=== PATIENT | male | born 1975 | race Caucasian/White ===

== ENCOUNTER 2019-11-09 19:09 | Emergency (ER) | payer BC, SELFPAY ==
[2019-11-09 19:11] VITALS: BP 142/88; PULSE 111; RESP 19; TEMP 37; O2SAT 100
--- NOTE | 2019-11-09 20:18 | ED.SKABFB ---
HPI - Skin/Abscess/Foreign Bdy General Chief complaint: Wound/Laceration Stated complaint: boil on leg Time Seen by Provider: 11/09/19 20:17 History of Present Illness HPI narrative: Pain and swelling to the right inner thigh. Getting worse for the past 3 days. No fever or othersystemic symptom. Related Data Allergies Allergy/AdvReac Type Severity Reaction Status Date / Time acetaminophen [From Vicodin] Allergy Agitated Verified 11/09/19 20:34 hydrocodone [From Vicodin] Allergy Agitated Verified 11/09/19 20:34 Review of Systems Review of Systems: All systems reviewed & are unremarkable except as noted in HPI and below PMFSH Social History Social History Gender identity (if verbalized by the patient): Male Exam Const: General: healthy appearing, no acute distress and alert Orientation/consciousness: patient oriented x3 HENMT: Head: normal to inspection Resp: Effort & Inspection: normal respiratory effort Auscultation: clear to auscultation bilaterally Cardio: Rate: regular rate Rhythm: regular rhythm Skin: Other: erythema and induration over right inner thigh with small area of central fluctuance. Neuro: General: patient oriented x3 and moves all extremities Speech: normal speech Extrem: General: normal to inspection Course Vital Signs Vital signs: Vital Signs Temperature 37.0 C 11/09/19 19:11 Pulse Rate 111 H 11/09/19 19:11 Respiratory Rate 19 11/09/19 19:11 Blood Pressure 142/88 H 11/09/19 19:11 Pulse Oximetry 100 11/09/19 19:11 Temperature 37.0 C 11/09/19 19:11 Pulse Rate 106 H 11/09/19 21:15 Respiratory Rate 17 11/09/19 21:15 Blood Pressure 159/93 H 11/09/19 21:15 Pulse Oximetry 97 11/09/19 21:15 Procedures Abscess I/D lower extremity: Side (if applicable): right Local Anesthetic: lidocaine 1% Amount of anesthesia used (mL): 6 Technique: incised with #11 blade Amount of fluid expressed (mL): 2 Irrigation: Yes Packing used?: none I&D Results: Pus Complications: pain Discharge Plan Discharge Clinical Impression: Abscess Patient Disposition: Home, Self-Care Condition: Stable Instructions: Antibiotic Form, Abscess (ED) Prescriptions: New sulfamethoxazole-trimethoprim [Bactrim DS] 800-160 mg tablet 1 tablet PO Q12H Qty: 20 RF: 0 Follow-up/Referrals: Douglas Asif MD [Physician] - PHYSICIAN,CLINICAL OUTCOMES MANAGER [Primary Care Provider] - Discharge Date/Time: 11/09/19 21:16
[2019-11-09 21:15] VITALS: BP 159/93; PULSE 106; RESP 17; O2SAT 97
== END 2019-11-09 21:16 | disposition home or self-care (01) ==
PROVIDERS: Emergency Provider Emergency Medicine
DX: L02.415 Cutaneous abscess of right lower limb (principal)
CPT/HCPCS: 10060; 99283; A9270

== ENCOUNTER 2019-11-11 15:54 | Inpatient (IN) | payer BC, SELFPAY ==
--- NOTE | ~2019-11-11 | US_ITS ---
EXAMINATION: US soft tissue pelvic DATE: 11/13/2019 13:58 INDICATION: Swelling at the right side of the scrotum TECHNIQUE: Multiple grayscale and Doppler ultrasound images of the junction of concern at the right g roin and medial thigh were obtained. COMPARISON: None FINDINGS: There is subcutaneous edema surrounding a 1.9 x 1.1 x 1.5 cm complex anechoic fluid collection which likely represents a small abscess which is located 1.4 cm deep to the skin surface. There is an irreg ular hypoechoic tract which extends from the abscess towards the skin surface. IMPRESSION: 1. 1.9 x 1.1 x 1.5 cm likely draining abscess within a region of cellulitis at the medial right thigh /groin. Reviewed, dictated and finalized at location A. IMPRESSION: 1. 1.9 x 1.1 x 1.5 cm likely draining abscess within a region of cellulitis at the medial right thigh/groin.
--- NOTE | ~2019-11-11 | CT_ITS ---
EXAMINATION: CT pelvis w con EXAM DATE: 11/11/2019 17:35 INDICATION: Gluteal/right leg abscess/cellulitis. TECHNIQUE: Spiral CT pelvis w con was performed following intravenous injection of 100 mL Omnipaque 3 50. Axial, coronal and sagittal images were reviewed. The thighs were also scanned. The dose-length product (DLP) for this examination was 1379.41 mGy-cm. The exposure was tailored according to patien t size (auto mA exposure control), and iterative reconstruction (ASIR) was used as additional dose re duction technique. There is no prior study for comparison. FINDINGS: Image bottom portion of the kidneys unremarkable. The appendix is normal. There is expecte d amount of colonic stool and no evidence of bowel obstruction. No pelvic lymphadenopathy. There is induration along the right inner gluteal fold, inner aspect of the thigh as evidenced by ski n thickening and regional edema. There is no abscess or subcutaneous gas. Appearances consistent with cellulitis There are no osseous abnormalities identified. IMPRESSION: Right gluteal, medial thigh cellulitis. Reviewed, dictated and finalized at location A.
--- NOTE | 2019-11-11 16:01 | ED.SKABFB ---
HPI - Skin/Abscess/Foreign Bdy General Chief complaint: Wound/Laceration Stated complaint: Boil Time Seen by Provider: 11/11/19 15:57 History of Present Illness HPI narrative: Patient is a 44-year-old male with history of abscess that was opened a couple days ago who presents with worsening of abscess/infection. Reports originally pain was at the fold of his thigh and buttock on the left side. The redness is extending to his mid thigh. No continued drainage. Compliant with antibiotics. No fevers or chills or sweats. Has a lot of pain with movement of his leg. Related Data Home Medications Medication Instructions Recorded Confirmed omeprazole 40 mg PO DAILY 11/11/19 Allergies Allergy/AdvReac Type Severity Reaction Status Date / Time acetaminophen [From Vicodin] Allergy Agitated Verified 11/11/19 16:50 hydrocodone [From Vicodin] Allergy Agitated Verified 11/11/19 16:50 Review of Systems Review of Systems: All systems reviewed & are unremarkable except as noted in HPI and below Constitutional: Constitutional: Denies chills, Denies fever(s) and Denies weakness Gastrointestinal: Gastrointestinal: Denies nausea and Denies vomiting Musculoskeletal: Comments: Left lower extremity pain and inguinal crease pain. Integumentary/Breasts: Skin/Breast: Reports erythema and Reports rash PMFSH Past Medical History Medical History (Updated 11/11/19 @ 18:53 by Clay Zurita MD) Brugada syndrome Mild acid reflux Surgical History Surgical History (Updated 11/11/19 @ 17:17 by Clay Zurita MD) History of cholecystectomy History of hernia repair Social History Social History (Updated 11/11/19 @ 17:17 by Clay Zurita MD) Smoking status: Never smoker Gender identity (if verbalized by the patient): Male Exam Narrative: Exam Narrative: GENERAL: Well-appearing, well-nourished, and in no acute distress. HEAD: Normocephalic, atraumatic. ENT: Mucous membranes moist. CHEST: Clear to auscultation. No respiratory distress. HEART: Tachycardic and regular. Normal peripheral pulses. EXTREMITIES: Normal range of motion. No edema. SKIN: Warm, dry, no rash. Cellulitis from just beneath the left buttock region medial posterior thigh where there is a area of induration where there was incision and drainage, cellulitis not extends down to the mid thigh. Does not track towards the perineum or testicles. NEURO: Alert and oriented x3. PSYCH: Normal mood and affect. Course Course Emergency Course: Admit to hospitalist service. General surgeon consulted. Vital Signs Vital signs: Vital Signs Temperature 98.2 F 11/11/19 16:03 Pulse Rate 116 H 11/11/19 16:03 Respiratory Rate 18 11/11/19 16:03 Blood Pressure 141/81 H 11/11/19 16:03 Pulse Oximetry 98 11/11/19 16:03 Temperature 98.2 F 11/11/19 16:03 Pulse Rate 93 11/11/19 18:17 Respiratory Rate 20 11/11/19 18:17 Blood Pressure 152/77 H 11/11/19 18:17 Pulse Oximetry 96 11/11/19 18:17 MDM - Skin/Abscess/Foreign Bdy Lab Data Result diagrams: 11/11/19 16:14 11/11/19 16:14 Labs: Lab Results 11/11/19 11/11/19 11/11/19 Range/Units 16:13 16:14 16:14 WBC 10.6 H (4.5-10.0) K/mm3 RBC 4.75 (4.6-6.20) M/mm3 Hgb 14.5 (14.0-18.0) g/dL Hct 40.8 L (42.0-52.0) % MCV 85.9 (80-100) fl MCH 30.5 (26-34) pg MCHC 35.5 (32-36) g/dl RDW 12.7 (11.5-14.5) % Plt Count 233 (150-375) k/mm3 MPV 10.7 H (7.4-10.4) fl Immature Gran % (Auto) 0.5 (0-0.5) % Neut % (Auto) 76.0 H (45.5-73.1) % Lymph % (Auto) 15.0 L (18.3-44.2) % [place] % (Auto) 7.3 (2.6-8.5) % Eos % (Auto) 0.8 (0-4.4) % Baso % (Auto) 0.4 (0.2-1.2) % Lymph # (Auto) 1.58 (0.9-3.2) K/mm3 [place] # (Auto) 0.8 H (0.1-0.6) K/mm3 Eos # (Auto) 0.1 (0-0.3) K/mm3 Baso # (Auto) 0.0 (0.0-0.1) K/mm3 Abs Immat Gran (auto) 0.05 H (0.00-0.031) K/mm3 Absolute Neuts (a
[2019-11-11 16:03] VITALS: BP 141/81; PULSE 116; RESP 18; TEMP 36.8; O2SAT 98
[2019-11-11] MEDS: MORPHINE SULFATE 4 MG/ML INJ IV PUSH (16:28)
[2019-11-11] MEDS: SODIUM CHLORIDE 0.9% IV 1,000 ML 999 ML IV CONT ×2 (16:28→16:59)
[2019-11-11 16:31] LABS: Basophils Percent Auto 0.4 % (0.2-1.2); Eosinophils Absolute Auto 0.1 K/mm3 (0-0.3); Eosinophils Percent Auto 0.8 % (0-4.4); Hematocrit 40.8 % (42.0-52.0); Hemoglobin 14.5 g/dL (14.0-18.0); Immature Granulocyte Absolute 0.05 K/mm3 (0.00-0.031); Immature Granulocyte Percent A 0.5 % (0-0.5); Lymphocytes Absolute Auto 1.58 K/mm3 (0.9-3.2); Mean Corpuscular HGB Conc 35.5 g/dl (32-36); Mean Corpuscular Hemoglobin 30.5 pg (26-34); Mean Corpuscular Volume 85.9 fl (80-100); Mean Platelet Volume 10.7 fl (7.4-10.4); Monocytes Absolute Auto 0.8 K/mm3 (0.1-0.6); Monocytes Percent Auto 7.3 % (2.6-8.5); Platelet Count Result 233 k/mm3 (150-375); Red Blood Count 4.75 M/mm3 (4.6-6.20); Red Cell Distribution Width 12.7 % (11.5-14.5); White Blood Count 10.6 K/mm3 (4.5-10.0)
[2019-11-11 16:43] LABS: Lactic Acid Reflex 2.2 mmol/L (0.7-2.1)
[2019-11-11 16:47] LABS: Alanine Aminotransferase 27 U/L (4-50); Alkaline Phosphatase 99 U/L (38-126); Anion Gap 10 mmol/L (8-16); Aspartate Amino Transferase 17 U/L (17-59); Bilirubin,Total 0.9 mg/dL (0.2-1.3); Blood Urea Nitrogen 9 mg/dL (9-20); Calcium 9.1 mg/dL (8.4-10.2); Carbon Dioxide 25 mmol/L (22-30); Chloride 95 mmol/L (98-107); Estimated CRCL calculation 135 ml/min; Estimated Glomerular Filt Rate > 60; Glucose 547 mg/dL (75-110); Potassium 4.3 mmol/L (3.4-5.0); Sodium 130 mmol/L (137-145)
[2019-11-11 16:57] LABS: CRP 16.8 mg/dL (<1.0)
[2019-11-11 17:10] LABS: Erythrocyte Sedimentation Rate 58 mm/hr (0-20)
[2019-11-11 17:25] LABS: Hemoglobin A1C 11.2 % (<5.7)
[2019-11-11 18:17] VITALS: BP 152/77; PULSE 93; RESP 20; O2SAT 96
[2019-11-11 18:22] LABS: Glucose Point of Care 470 (65-105)
--- NOTE | 2019-11-11 18:30 | PM.IMHP ---
H&P: HPI History of Present Illness Date/Time: 11/11/19 18:30 <Jerilyn Alvarado PA-C - Last Filed: 11/11/19 21:50> Chief complaint: Right thigh cellulitis. <Jerilyn Alvarado PA-C - Last Filed: 11/11/19 21:50> Narrative: Rex Garcia is a 44-year-old male who presented to the emergency department earlier today for evaluation of a worsening right thigh wound/infection. Approximately 3 weeks ago he noticed a small, raised area on his right upper medial thigh, that initially was thought to be perhaps a pimple or boil. His was able to express a small amount of whitish drainage, and since that time it has gotten progressively bigger in size. He has also had pain in the area, and in fact was seen in the emergency department in the evening hours of November 09, 2019. Incision and drainage at that time yielded a small amount of pus and he was discharged home on Bactrim. He has been compliant with the antibiotics, but unfortunately the area continues to be painful and has gotten progressively more erythematous and edematous. He also reports subjective fever, chills, and rigors. Also of note, his random glucose today was 547, and with further questioning he denies a history of diabetes. He also denies blurry vision, polydipsia, polyuria, and neuropathy symptoms. He has lost about 100 pounds in the past 1 year, but he attributed that to lifestyle changes including being more active and watching his diet somewhat. No history of MRSA. <Jerilyn Alvarado PA-C - Last Filed: 11/11/19 21:50> Review of Systems Review of Systems: Narrative: Twelve systems were reviewed with pertinent positives and negatives as per HPI. No headache. He denies recent cold and flu symptoms. No shortness of breath. He has occasional dry cough. No recent travel or sick contacts. no lightheadedness, dizziness, chest pain, palpitations, or shortness of breath Except as documented, all other systems were reviewed and are negative. <Jerilyn Alvarado PA-C - Last Filed: 11/11/19 21:50> [facility] Past Medical History Medical History: Medical History (Updated 11/11/19 @ 20:00 by Jerilyn Alvarado PA-C) Brugada syndrome Found on an EKG prior to his cholecystectomy. He was evaluated by an repair service dispatcher somewhere in [place], and had a stress test and cardiac catheterization which were unrevealing and they were unable to induce dysrhythmia. Gastroesophageal reflux disease <Jerilyn Alvarado PA-C - Last Filed: 11/11/19 21:50> Surgical History Surgical History: Surgical History (Updated 11/11/19 @ 19:42 by Jerilyn Alvarado PA-C) History of laparoscopic cholecystectomy History of ventral hernia repair <Jerilyn Alvarado PA-C - Last Filed: 11/11/19 21:50> Family History Family History: Family History Mother Diabetes mellitus Emphysema of lung Father Diabetes mellitus Acute myocardial infarction Sibling , Brother suddenly at age 25. Unknown if he also had Brugada syndrome. Sudden <Jerilyn Alvarado PA-C - Last Filed: 11/11/19 21:50> Social History Social History: Social History Social History: The patient lives in [place], [place] with his . He works in [employer]. He smoked 1 pack of cigarettes a day and quit in 2011. No alcohol or illicit substance abuse. 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 Smoking packs per day: 1 Smoking cigarettes per day: 20.0 Years smoked: 16 Smoking pack-years: 16.00 Smoking status: Former smoker Tobacco type: cigarettes Additional smoking assessment comments: pt states smoking was on and off Alcohol intake: unknown Substance use: current <Jerilyn Alvarado PA-C - Last Filed: 11/11/19 21:50> Meds Home Medications and Allergies Home medications:
[2019-11-11 19:29] LABS: Reflex Lactic Acid Yes or No Add Lactic
[2019-11-11 20:00] VITALS: BP 140/77; PULSE 88; RESP 20; TEMP 36.9; O2SAT 99
[2019-11-11 20:01] LABS: Anion Gap 6 mmol/L (8-16); Blood Urea Nitrogen 9 mg/dL (9-20); Calcium 8.4 mg/dL (8.4-10.2); Carbon Dioxide 28 mmol/L (22-30); Chloride 97 mmol/L (98-107); Estimated CRCL calculation 135 ml/min; Estimated Glomerular Filt Rate > 60; Glucose 449 mg/dL (75-110); Lactic Acid 1.1 mmol/L (0.7-2.1); Potassium 4.6 mmol/L (3.4-5.0); Sodium 131 mmol/L (137-145)
[2019-11-11] MEDS: SODIUM CHLORIDE 0.9% IV 1,000 ML 100 ML IV CONT (20:14)
--- NOTE | 2019-11-11 20:34 | ADMGEN ---
This patient, Rex Garcia, was admitted to 2 Medical Room 242-01 @ 1850. Patient/family oriented to hospital policies and general routines including ID bracelet, bed and alarms, visiting hours, pain management, procedures, bathroom and other care routines, personal items, smoking policy, room service/diet, and visiting hours. Valuables list has been completed. Information on how to activate the Rapid Response Team has been discussed. Patient/Family are encouraged to report perceived risks to care and to ask questions if they do not understand what they are told or what they should do.
[2019-11-11] MEDS: INSULIN GLARGINE (*BKC) 100 UNITS/ML 20 UNITS SUB-Q (20:56)
[2019-11-11] MEDS: INSULIN ASPART (*BKC) 100 UNITS/ML SUB-Q (20:56)
[2019-11-11 21:32] LABS: Glucose Point of Care 426 (65-105)
[2019-11-12] VITALS (9 sets, daily range): BP systolic 116–150; BP diastolic 65–82; PULSE 74–82; RESP 15–20; TEMP 36.1–37.2; O2SAT 98–99
[2019-11-12] MEDS: ONDANSETRON INJ 4 MG/2 ML VIAL IV PUSH ×3 (00:03→21:10)
[2019-11-12] MEDS: MORPHINE SULFATE 4 MG/ML INJ IV PUSH ×6 (00:03→21:09)
[2019-11-12 03:27] LABS: Glucose Point of Care 274 (65-105)
[2019-11-12 07:46] LABS: Glucose Point of Care 308 (65-105)
[2019-11-12] MEDS: INSULIN ASPART (*BKC) 100 UNITS/ML SUB-Q ×3 (08:03→16:53)
--- NOTE | 2019-11-12 09:15 | PM.CNGS ---
Assessment and Plan Assessment and plan (1) Cellulitis of right thigh: Code(s): L03.115 - Cellulitis of right lower limb Status: Acute Assessment and Plan: no abscess present at this time. Certainly may develop an abscess. Hopefully antibiotics will be satisfactory but will follow along with you in case abscess develops and drainage procedure is needed. Explained this to the patient. (2) New onset type 2 diabetes mellitus: Code(s): E11.9 - Type 2 diabetes mellitus without complications Status: Acute Assessment and Plan: Hemoglobin A1c is over 11. Blood sugars are improving. Management per hospitalist service. History of Present Illness Consult details Consult date: 11/12/19 Reason for consult: other ( cellulitis, possible abscess, left proximal medial thigh) Narrative: the patient is a 44-year-old man who 3 weeks prior to admission noticed a small pustule of the medial thigh. His was able to express some whitish material from this but since then it has gotten worse. It was more painful swollen reddened and warm. He came to the emergency room on November 08 where he was noted to have a small boil there. This was drained by the emergency room physician. About 2 cc of purulent fluid were drained. He was started on Bactrim which he did take. Unfortunately he did not have improvement. He came back to the emergency room yesterday, 11/11/2019. He was noted to have severe cellulitis of the upper medial thigh. He also was noted to have a random glucose of 547. He has no history of diabetes. The patient had a CT scan which showed only induration and cellulitis but no drainable fluid collection. The patient has morbid obesity with a BMI of 40.9. He has, however, lost about 100 lb in the last year prior predominantly due to lifestyle changes with increased activity and watching his diet. Underlying diabetes may also have played a role although that is not clear. He also carries a diagnosis of a Brugada syndrome. This is apparently not requiring any treatment. He is seen now in consultation regarding the left thigh cellulitis and potential for abscess and surgical treatment. The area of the cellulitis and abscess is still painful possibly slightly less painful than when he came in last night. Review of Systems Review of Systems: All systems reviewed & are unremarkable except as noted in HPI and below Constitutional: Constitutional: Reports body ache(s), Reports chills, Reports fever(s) and Denies headache(s) Cardiovascular: Cardiovascular: Denies chest pain and Denies dyspnea Respiratory: Respiratory: Denies cough and Denies dyspnea Gastrointestinal: Gastrointestinal: Denies bloating, Denies constipation and Denies nausea Neurologic: Denies confusion and Denies headache(s) Psychiatric: Psychiatric: Denies anxiety, Denies behavioral changes and Denies depression Endocrine: Endocrine: Reports as per HPI, Reports change in body appearance ( Has lost over 100 lb in the last year), Denies polyphagia and Denies polyuria [facility] Past Medical History Medical History Brugada syndrome Found on an EKG prior to his cholecystectomy. He was evaluated by an lean process deployment consultant somewhere in [place], and had a stress test and cardiac catheterization which were unrevealing and they were unable to induce dysrhythmia. Gastroesophageal reflux disease Surgical History Surgical History History of laparoscopic cholecystectomy History of ventral hernia repair Family History Family History Mother Diabetes mellitus Emphysema of lung Father Diabetes mellitus Acute myocardial infarction Sibling , Brother suddenly at age 25. Unknown if he also had Brugada syndrome. Sudden Social History Social History (Reviewed
[2019-11-12 11:49] LABS: Glucose Point of Care 326 (65-105)
[2019-11-12 16:42] LABS: Glucose Point of Care 300 (65-105)
--- NOTE | 2019-11-12 17:14 | PM.IMPN ---
Progress Note: A&P Assessment and Plan (1) Sepsis: Code(s): A41.9 - Sepsis, unspecified organism Status: Acute Assessment and Plan: Present on admission and supported by tachycardia, leukocytosis, and elevated lactic acid level. He received IV fluid rehydration. Repeat lactic acid level normal. Tacycardia resolved. Blood cultures NGTD. (2) Cellulitis of right thigh: Code(s): L03.115 - Cellulitis of right lower limb Status: Acute Assessment and Plan: Patient presents with right thigh/groin cellulitis. CT showing no abscess but cellulitis of the gluteal and medial thigh. GenSurg consulted and appreciate their input. Continue imipenem and vancomycin for now. Blood cultures NGTD. (3) New onset type 2 diabetes mellitus: Code(s): E11.9 - Type 2 diabetes mellitus without complications Status: Acute Assessment and Plan: A1c 11.2%. Lantus started. The patient's blood glucose was reviewed on 11/12/19. Glucose still poorly controlled. Continue AccuCheks covering with sliding scale. Hypoglycemia protocol available as needed. Continue current medications. (4) Brugada syndrome: Code(s): I49.8 - Other specified cardiac arrhythmias Status: Acute Assessment and Plan: Found on an EKG prior to his cholecystectomy. He was evaluated by an letterset press set up operator somewhere in [place] and had a stress test and cardiac catheterization which were unrevealing and they were unable to induce dysrhythmia. He has not had a follow-up after initial evaluation 7-8 years ago. He denies signs and symptoms concerning for dysrhythmia. He was encouraged to tell all healthcare providers about this, to avoid being started on contraindicated medications. (5) Elevated blood pressure reading: Code(s): R03.0 - Elevated blood-pressure reading, without diagnosis of hypertension Status: Acute Assessment and Plan: Patient's blood pressure was reviewed on 11/12/19. Blood pressure mildly elevated on admission but not unexpected given the pain and sepsis. BP remains well controlled now. Will continue to monitor. Consider low dose ACEI (6) DVT prophylaxis: Code(s): Z29.9 - Encounter for prophylactic measures, unspecified Status: Acute Assessment and Plan: Antonio Roberts Date/time seen: 11/12/19 17:14 Interval history: 44yo male here for right thigh wound and found to have hyperglycemia. Pain controlled. No CP or SOB. Walking to the BR. No n/v. No diarrhea. Exam Narrative: Exam Narrative: AF 144/77 78 20 98% ra Gen - WNWD male in NARD Chest - CTA bilaterally, nml RR CV - RRR S1/S2; Tele showing no alarms Abd - soft, obese, NT Ext - no pedal edema Psych - nml mood and affect Skin - small indurated area in the right groin fold with small eschar. pink eryhtema involving majority of the right medial thigh that has not extended beyond the marked areas. no significnat induration of the thigh. Nontender. Objective Data Vital Signs Vital Signs: Vital Signs - 24 hr 11/11/19 18:17 11/11/19 20:00 11/12/19 00:00 Temperature 98.5 F 97.5 F L Pulse Rate 93 88 79 Respiratory Rate 20 20 20 Blood Pressure 152/77 H 140/77 128/79 Pulse Oximetry 96 99 99 11/12/19 04:00 11/12/19 08:00 11/12/19 10:00 Temperature 97 F L 97.3 F L Pulse Rate 74 78 77 Respiratory Rate 20 17 Blood Pressure 136/82 116/65 Pulse Oximetry 99 99 11/12/19 12:00 11/12/19 14:00 11/12/19 16:00 Temperature 98.9 F Pulse Rate 82 80 74 Respiratory Rate 15 Blood Pressure 130/71 Pulse Oximetry 98 Intake/Output Intake/Output: Intake & Output 11/09/19 11/10/19 11/11/19 11/12/19 23:59 23:59
[2019-11-12] MEDS: ENOXAPARIN 40 MG/0.4 ML SYRINGE SUB-Q (20:54)
[2019-11-12] MEDS: INSULIN GLARGINE (*BKC) 100 UNITS/ML 20 UNITS SUB-Q (20:59)
[2019-11-12 21:30] LABS: Glucose Point of Care 292 (65-105)
[2019-11-13 02:00] VITALS: BP 147/84; PULSE 73; RESP 16; TEMP 36.3; O2SAT 98
[2019-11-13] MEDS: MORPHINE SULFATE 4 MG/ML INJ IV PUSH ×4 (02:38→19:39)
[2019-11-13] MEDS: ONDANSETRON INJ 4 MG/2 ML VIAL IV PUSH ×2 (02:39→07:20)
[2019-11-13 05:43] VITALS: BP 126/56; PULSE 73; RESP 16; TEMP 36.2; O2SAT 98
[2019-11-13 06:33] LABS: Hematocrit 34.8 % (42.0-52.0); Hemoglobin 12.1 g/dL (14.0-18.0); Mean Corpuscular HGB Conc 34.8 g/dl (32-36); Mean Corpuscular Hemoglobin 30.6 pg (26-34); Mean Corpuscular Volume 87.9 fl (80-100); Mean Platelet Volume 10.1 fl (7.4-10.4); Platelet Count Result 198 k/mm3 (150-375); Red Blood Count 3.96 M/mm3 (4.6-6.20); Red Cell Distribution Width 12.6 % (11.5-14.5); White Blood Count 7.2 K/mm3 (4.5-10.0)
[2019-11-13 06:50] LABS: Anion Gap 5 mmol/L (8-16); Blood Urea Nitrogen 10 mg/dL (9-20); Calcium 8.4 mg/dL (8.4-10.2); Carbon Dioxide 28 mmol/L (22-30); Chloride 98 mmol/L (98-107); Cholesterol 148 mg/dL (0-200); Estimated CRCL calculation 135 ml/min; Estimated Glomerular Filt Rate > 60; Glucose 263 mg/dL (75-110); HDL Direct 20 mg/dL; Sodium 131 mmol/L (137-145); Triglycerides 195 mg/dL (<150)
[2019-11-13 07:00] LABS: LDL Cholesterol Direct 104 mg/dL
[2019-11-13 07:13] LABS: Vancomycin Trough 7.4 ug/mL (10.0-20.0)
[2019-11-13 07:55] LABS: Glucose Point of Care 262 (65-105)
[2019-11-13] MEDS: INSULIN ASPART (*BKC) 100 UNITS/ML SUB-Q ×3 (08:13→16:58)
[2019-11-13 10:00] VITALS: BP 128/73; PULSE 79; RESP 19; TEMP 36.1; O2SAT 98
--- NOTE | 2019-11-13 11:25 | PM.IMPN ---
Progress Note: A&P Assessment and Plan (1) Sepsis: Code(s): A41.9 - Sepsis, unspecified organism Status: Acute Assessment and Plan: Present on admission and supported by tachycardia, leukocytosis, and elevated lactic acid level. He received IV fluid rehydration. Repeat lactic acid level normal. Tacycardia resolved. Blood cultures NGTD. (2) Cellulitis of right thigh: Code(s): L03.115 - Cellulitis of right lower limb Status: Acute Assessment and Plan: Patient presents with right thigh/groin cellulitis. CT showing no abscess but cellulitis of the gluteal and medial thigh. Blood cultures NGTD. GenJoyceravani consulted and appreciate their input. Pain and edema in the groin and scrotal area. Will check US. Continue imipenem and vancomycin for now. US showing a 1.9cm likely draining abscess within a region of cellulitis at the medial right thigh/groin. This is probably what spontaseously drained over night. May need furthe drainage but small and suspect will resolve on its on with abx. (3) New onset type 2 diabetes mellitus: Code(s): E11.9 - Type 2 diabetes mellitus without complications Status: Acute Assessment and Plan: A1c 11.2%. Lantus started. The patient's blood glucose was reviewed on 11/13/19. Glucose still poorly controlled. Metformin added and meal time isluin. Lantus advanced. Continue AccuCheks covering with sliding scale. Hypoglycemia protocol available as needed. (4) Brugada syndrome: Code(s): I49.8 - Other specified cardiac arrhythmias Status: Acute Assessment and Plan: Found on an EKG prior to his cholecystectomy. He was evaluated by an park aide somewhere in [place] and had a stress test and cardiac catheterization which were unrevealing and they were unable to induce dysrhythmia. He has not had a follow-up after initial evaluation 7-8 years ago. He denies signs and symptoms concerning for dysrhythmia. He was encouraged to tell all healthcare providers about this so as to avoid being started on contraindicated medications. (5) Elevated blood pressure reading: Code(s): R03.0 - Elevated blood-pressure reading, without diagnosis of hypertension Status: Acute Assessment and Plan: Patient's blood pressure was reviewed on 11/13/19. Blood pressure mildly elevated on admission but not unexpected given the pain and sepsis. BP remains reasonably well controlled now. Will continue to monitor. Consider low dose ACEI (6) DVT prophylaxis: Code(s): Z29.9 - Encounter for prophylactic measures, unspecified Status: Acute Assessment and Plan: Antonio Subjective Date/time seen: 11/13/19 11:25 Interval history: 44yo male here for right thigh wound and found to have hyperglycemia. Slept well last night. Pain well controlled. Noted when he moved in bed that there was spontaneous drainage from medial right thigh wound. No CP or SOB. No n/v, no diarrhea. Complains of pain in his right testicle and feels this is swollen. Exam Narrative: Exam Narrative: AF 128/73 79 19 98% ra Gen - NARD walking in room Chest - CTA bilaterally, nml RR CV - RRR S1/S2 Abd - soft, obese, NT with purple striae - mild increased size of the right scrotum. testicle does not feel enlarged. no significnat erythema. no hernia Ext - no pedal edema Psych - nml mood and affect Skin - indurated area in the right groin fold with small eschar and no obvious drainage. pink eryhtema involving majority of the right medial thigh that has extended just beyond one of the marked areas. no significant induration of the thigh. Tender medial but otherwise nontender. Obj
[2019-11-13 11:44] LABS: Glucose Point of Care 336 (65-105)
[2019-11-13] MEDS: INSULIN ASPART (*BKC) 100 UNITS/ML 8 UNITS SUB-Q ×2 (11:50→16:58)
--- NOTE | 2019-11-13 13:48 | PM.PNGS ---
Progress Note: A&P Assessment and Plan (1) Cellulitis of right thigh: Code(s): L03.115 - Cellulitis of right lower limb Status: Acute Assessment and Plan: no abscess noted on exam as yet. Continue IV antibiotic therapy. If no better again tomorrow, will get ultrasound. (2) New onset type 2 diabetes mellitus: Code(s): E11.9 - Type 2 diabetes mellitus without complications Status: Acute Assessment and Plan: Blood sugars slowly improving, now mid 200s. Subjective Subjective Date/Time Seen: 11/13/19 13:48 Patient reports: no new complaints, still having pain and afebrile Interval history: Right proximal medial thigh does not feel any better. Patient describes the soreness seems to be going up into the base of his scrotum. He reports that nursing had some amount of purulent drainage coming from the previous abscess drainage site by putting her hand over the area of the infection. Review of Systems Review of Systems: All systems reviewed & are unremarkable except as noted in HPI and below Constitutional: Constitutional: Denies headache(s) Cardiovascular: Cardiovascular: Denies chest pain and Denies dyspnea Respiratory: Respiratory: Denies cough and Denies dyspnea Gastrointestinal: Gastrointestinal: Reports as per HPI Exam Const: General: comfortable and no acute distress; No confusion Orientation/consciousness: patient oriented x3 and No confusion Neuro: General: patient oriented x3, no focal motor deficits and No confusion Extrem: General: no calf tenderness and no edema Left lower extremity: hip/thigh ( Erythema and tenderness about the same, no abscess palpable. No drainage) Details: tenderness, swelling, warmth and other ( Erythema) Psych: Affect: normal affect Insight: Good insight present (Psych) Judgement: Good judgement present (Psych) Objective Data Vital Signs Vital Signs: Vital Signs - 24 hr 11/12/19 14:00 11/12/19 16:00 11/12/19 19:03 Temperature 37.2 C 36.6 C Pulse Rate 80 74 78 Respiratory Rate 15 20 Blood Pressure 130/71 144/77 H Pulse Oximetry 98 98 11/12/19 21:11 11/13/19 02:00 11/13/19 05:43 Temperature 36.4 C L 36.3 C L 36.2 C L Pulse Rate 78 73 73 Respiratory Rate 16 16 16 Blood Pressure 150/77 H 147/84 H 126/56 L Pulse Oximetry 99 98 98 08/09/20 10:00 Temperature 36.1 C L Pulse Rate 79 Respiratory Rate 19 Blood Pressure 128/73 Pulse Oximetry 98 afebrile Intake/Output Intake/Output: Intake & Output 11/10/19 11/11/19 11/12/19 11/13/19 23:59 23:59 23:59 23:59 Intake Total 2600 5320 690 Output Total 2800 1300 Balance 2600 2520 -610 Meds/Results Medications: Active Medications Generic Name Dose Route Start Last Admin Trade Name Freq PRN Reason Stop Dose Admin Acetaminophen 650 mg 11/11/19 17:58 Tylenol Tablet PO Q4H PRN Mild Pain (1-3) or Fever Hydrocodone Bitart/Acetaminophen 1 tab 11/11/19 17:58 11/11/19 20:17 [place] 5-325 Mg PO 1 tab Q4H PRN Administration Pain Rated 4-6 Dextrose 12.5 gm 11/11/19 19:56 Dextrose 50% Syringe IV PUSH PRN PRN Hypoglycemia Protocol Enoxaparin Sodium 40 mg 11/13/19 18:00 Lovenox SUB-Q Q24H JAMI Glucagon 1 mg 11/11/19 19:56 Glucagon For Inj IM PRN PRN Hypoglycemia Protocol Glucose 15 gm 11/11/19 19:56 Glutose 15 PO PRN PRN Hypoglycemia Protocol Dextrose 1,000 mls @ 100 mls/hr 11/11/19 19:56 Dextrose 5% 1,000 Ml IVPB PRN PRN Hypoglycemia Protocol Imipenem/Cilastatin Sodium 500 100 ml in 100 mls @ 300 mls/hr 11/12/19 18:00 11/13/19 12:04 mg/ Sodium Chloride IVPB 200 mls/hr Q6HR JAMI Administration Vancomycin HCl 1,500 mg/ 500 mls @ 333.333 mls/hr 11/13/19 16:00 Sodium Chloride IVPB Q8H JAMI Insulin Aspart 3 - 6 units 11/12/19 08:00 11/13/19 11:51 Novolog SUB-Q 5 units TIDWM JAMI Administration Protocol
[2019-11-13 14:00] VITALS: BP 142/65; PULSE 72; RESP 19; TEMP 36.6; O2SAT 98
[2019-11-13 16:00] VITALS: BP 149/61; PULSE 76; RESP 17; TEMP 36.7; O2SAT 99
[2019-11-13 16:48] LABS: Glucose Point of Care 234 (65-105)
[2019-11-13] MEDS: metFORMIN HCL 250 MG TABLET PO (17:00)
[2019-11-13] MEDS: VANCOMYCIN HCL 1,500 MG in SODIUM CHLORIDE 0.9% IV 500 ML 333.3 MG IVPB ×2 (17:00→23:54)
[2019-11-13] MEDS: ENOXAPARIN 40 MG/0.4 ML SYRINGE SUB-Q (17:00)
[2019-11-13] MEDS: INSULIN GLARGINE (*BKC) 100 UNITS/ML 30 UNITS SUB-Q (21:59)
[2019-11-13 22:00] VITALS: BP 120/71; PULSE 77; RESP 16; TEMP 36.6; O2SAT 98
[2019-11-13 22:27] LABS: Glucose Point of Care 195 (65-105)
[2019-11-14] VITALS: BP 139/78; PULSE 73; RESP 16; TEMP 36.7; O2SAT 98
[2019-11-14 04:00] VITALS: BP 142/81; PULSE 78; RESP 12; TEMP 36.7; O2SAT 99
[2019-11-14 05:55] LABS: Anion Gap 5 mmol/L (8-16); Blood Urea Nitrogen 9 mg/dL (9-20); Calcium 8.5 mg/dL (8.4-10.2); Carbon Dioxide 28 mmol/L (22-30); Chloride 100 mmol/L (98-107); Estimated CRCL calculation 156 ml/min; Estimated Glomerular Filt Rate > 60; Glucose 221 mg/dL (75-110); Potassium 3.8 mmol/L (3.4-5.0); Sodium 133 mmol/L (137-145)
[2019-11-14] MEDS: MORPHINE SULFATE 4 MG/ML INJ IV PUSH ×2 (06:50→11:59)
--- NOTE | 2019-11-14 07:00 | PM.PNGS ---
Progress Note: A&P Assessment and Plan (1) Cellulitis of right thigh: Code(s): L03.115 - Cellulitis of right lower limb Status: Acute Assessment and Plan: Ultrasound done yesterday shows a 1.9 cm residual pocket of fluid that is 1.4 cm deep to the skin. It is draining more on its own but probably would benefit from incision and drainage. Will try to do this at the bedside today. It is a very small pocket but hopefully more effective drainage will help. (2) New onset type 2 diabetes mellitus: Code(s): E11.9 - Type 2 diabetes mellitus without complications Status: Acute Assessment and Plan: Blood sugars improving, now down around 195-200. Subjective Subjective Date/Time Seen: 11/14/19 07:00 Patient reports: still having pain and afebrile Interval history: having more drainage, still pretty sore. Not a lot of change since admission. Review of Systems Constitutional: Constitutional: Reports as per HPI, Denies chills and Denies fever(s) Exam Extrem: Left lower extremity: hip/thigh ( Can see small amounts of drainage from previous drainage site) Details: other ( Purulent fluid draining small amounts.) Objective Data Vital Signs Vital Signs: Vital Signs - 24 hr 11/13/19 10:00 11/13/19 14:00 11/13/19 16:00 Temperature 36.1 C L 36.6 C 36.7 C Pulse Rate 79 72 76 Respiratory Rate 19 19 17 Blood Pressure 128/73 142/65 H 149/61 H Pulse Oximetry 98 98 99 11/13/19 22:00 11/14/19 00:00 11/14/19 04:00 Temperature 36.6 C 36.7 C 36.7 C Pulse Rate 77 73 78 Respiratory Rate 16 16 12 Blood Pressure 120/71 139/78 142/81 H Pulse Oximetry 98 98 99 Intake/Output Intake/Output: Intake & Output 11/11/19 11/12/19 11/13/19 11/14/19 23:59 23:59 23:59 23:59 Intake Total 2600 5320 3390 1050 Output Total 2800 3050 820 Balance 2600 2520 340 230 Meds/Results Medications: Active Medications Generic Name Dose Route Start Last Admin Trade Name Freq PRN Reason Stop Dose Admin Acetaminophen 650 mg 11/11/19 17:58 Tylenol Tablet PO Q4H PRN Mild Pain (1-3) or Fever Hydrocodone Bitart/Acetaminophen 1 tab 11/11/19 17:58 11/11/19 20:17 [place] 5-325 Mg PO 1 tab Q4H PRN Administration Pain Rated 4-6 Dextrose 12.5 gm 11/11/19 19:56 Dextrose 50% Syringe IV PUSH PRN PRN Hypoglycemia Protocol Enoxaparin Sodium 40 mg 11/13/19 18:00 11/13/19 17:00 Lovenox SUB-Q 40 mg Q24H JAMI Administration Glucagon 1 mg 11/11/19 19:56 Glucagon For Inj IM PRN PRN Hypoglycemia Protocol Glucose 15 gm 11/11/19 19:56 Glutose 15 PO PRN PRN Hypoglycemia Protocol Dextrose 1,000 mls @ 100 mls/hr 11/11/19 19:56 Dextrose 5% 1,000 Ml IVPB PRN PRN Hypoglycemia Protocol Imipenem/Cilastatin Sodium 500 100 ml in 100 mls @ 300 mls/hr 11/12/19 18:00 11/14/19 06:17 mg/ Sodium Chloride IVPB Infused Q6HR [facility]AMI Infusion Vancomycin HCl 1,500 mg/ 500 mls @ 333.333 mls/hr 11/13/19 16:00 11/14/19 01:25 Sodium Chloride IVPB Infused Q8H JAMI Infusion Insulin Aspart 3 - 6 units 11/12/19 08:00 11/13/19 16:58 Novolog SUB-Q 3 units TIDWM JAMI Administration Protocol Insulin Aspart 8 units 11/13/19 12:00 11/13/19 16:58 Novolog 0.067 units/kg (8 units) 8 units SUB-Q Administration TIDWM [facility]I Insulin Glargine 30 units 11/13/19 21:00 11/13/19 21:59 Lantus SUB-Q 30 units HS JAMI Administration Metformin HCl 250 mg 11/13/19 17:00 11/13/19 17:00 Glucophage PO 250 mg BIDWM JAMI Administration Morphine Sulfate 4 mg 11/11/19 17:58 11/14/19 06:50 Morphine Sulfate Inj IV PUSH 4 mg Q2H PRN Administration Pain Rated 7-10 Ondansetron HCl 4 mg 11/11/19 17:58 11/13/19 07:20 Zofran Inj IV PUSH 4 mg Q4H PRN Administration Nausea Radiology Results: ITS Impressions Pelvis CT 11/11/19 17:44 IMPRESSION: Right
[2019-11-14 07:09] LABS: Cortisol Random 8.21 ug/dL
[2019-11-14] MEDS: VANCOMYCIN HCL 1,500 MG in SODIUM CHLORIDE 0.9% IV 500 ML 333.3 MG IVPB (08:05)
[2019-11-14] MEDS: metFORMIN HCL 250 MG TABLET PO ×2 (08:05→17:22)
[2019-11-14] MEDS: INSULIN ASPART (*BKC) 100 UNITS/ML SUB-Q (08:06)
[2019-11-14 08:08] LABS: Glucose Point of Care 218 (65-105)
[2019-11-14 10:00] VITALS: BP 139/76; PULSE 67; RESP 14; TEMP 36.7; O2SAT 98
--- NOTE | 2019-11-14 11:13 | PM.IMPN ---
Progress Note: A&P Assessment and Plan (1) Sepsis: Code(s): A41.9 - Sepsis, unspecified organism Status: Acute Assessment and Plan: Present on admission and supported by tachycardia, leukocytosis, and elevated lactic acid level. He received IV fluid rehydration. Repeat lactic acid level normal. WBC normal now. Tacycardia resolved. Blood cultures NGTD. (2) Cellulitis of right thigh: Code(s): L03.115 - Cellulitis of right lower limb Status: Acute Assessment and Plan: Patient presents with right thigh/groin cellulitis. CT showing no abscess but cellulitis of the gluteal and medial thigh. Blood cultures NGTD. GenSurg consulted and appreciate their input. He had increase pain in the groin and scrotal area so US obtained. US showing a 1.9cm likely draining abscess within a region of cellulitis at the medial right thigh/groin. This is probably what spontaseously drained. Plan for bedside surgical drainage today. Currently on Vanco and Primaxin. Will descalate to Levaquin and Vanco. Nausea may be from the Primaxin (3) New onset type 2 diabetes mellitus: Code(s): E11.9 - Type 2 diabetes mellitus without complications Status: Acute Assessment and Plan: A1c 11.2%. Lantus started. The patient's blood glucose was reviewed on 11/14/19. Glucose better but still poorly controlled. Continue Metformin and meal time insulin. Advance Lantus again. Continue AccuCheks covering with sliding scale. Hypoglycemia protocol available as needed. (4) Brugada syndrome: Code(s): I49.8 - Other specified cardiac arrhythmias Status: Acute Assessment and Plan: Found on an EKG prior to his cholecystectomy. He was evaluated by an dovetailer somewhere in [place] and had a stress test and cardiac catheterization which were unrevealing and they were unable to induce dysrhythmia. He has not had a follow-up after initial evaluation 7-8 years ago. He denies signs and symptoms concerning for dysrhythmia. He was encouraged to tell all healthcare providers about this so as to avoid being started on contraindicated medications. (5) Elevated blood pressure reading: Code(s): R03.0 - Elevated blood-pressure reading, without diagnosis of hypertension Status: Acute Assessment and Plan: Patient's blood pressure was reviewed on 11/14/19. Blood pressure mildly elevated on admission but not unexpected given the pain and sepsis. BP remains reasonably well controlled now. Will continue to monitor. Will add ACEI (6) DVT prophylaxis: Code(s): Z29.9 - Encounter for prophylactic measures, unspecified Status: Acute Assessment and Plan: Antonio Subjective Date/time seen: 11/14/19 11:13 Interval history: 44yo male here for right thigh wound and found to have hyperglycemia from newly diagnosed DM. No problems overnight. Patient does complain of headache. he had had 1 episode of nausea with vomiting this morning. This occurred prior to the metformin No chest pain. No abdominal pain. Exam Narrative: Exam Narrative: AF 139/76 67 14 98% ra Gen - NARD Chest - CTA bilaterally, nml RR CV - RRR S1/S2 Abd - soft, obese, NT with purple striae Ext - no pedal edema Psych - nml mood and affect Skin - Decrease in size of the indurated area in the right groin fold. fading erythema noted in the medial proximal right thigh. Less tender overall. Objective Data Vital Signs Vital Signs: Vital Signs - 24 hr 11/13/19 14:00 11/13/19 16:00 08/09/20 22:00 Temperature 97.9 F 98.1 F 97.9 F Pulse Rate 72 76 77 Respiratory Rate 19 17 16 Blood Pressure 142/65 H 149/61 H 120/71 Pulse Oximetry 98
[2019-11-14] MEDS: LIDO 1%/EPINEPHRINE 1:100,000 20 ML VIAL 5 ML INFILTRATE (12:02)
--- NOTE | 2019-11-14 12:19 | PC.NURSE ---
Incision and drainage done at bedside by Phoebe Vargas NP. Dressing initiated with iodoform gauze, 4x4 gauze, and medipore tape. at bedside and verbalizes understanding for packing and dressing changes at home. Patient received morphine IVP prior to procedure.
--- NOTE | 2019-11-14 12:27 | P.OP_ITS ---
Procedure Note - Detailed Date of procedure: 11/14/19 Pre-op diagnosis: Right groin abscess Post-op diagnosis: same Procedure performed: Incision and drainage of simple right groin abscess Description of procedure: The site of the required I&D at the area of the abscess was identified at the right posterior groin near the skin fold. Following this, the area was prepped with chlorhexidine and draped in usual sterile fashion. Then local anesthetic was infiltrated directly over the abscess formation where the previous incision is located. I then used a curved clamp to bluntly dissect down to the fluid pocket through the opening in the sk in from the previous incision. An immediate liz of purulent drainage flowed. All purulent drainage was expressed from the abscess. I did not have to further extend the opening from the previous incision. I then probed the abscess cavity and broke up all loculations. Following this, the area was packed with 1/4 inch iodoform Nu Gauze. The area was then covered with 4x4s and medipore tape. The patient tolerated the procedure well. Anesthesia: local (1% lidocaine with epi) Surgeon: PERCY Messer Selling Manager: LINDY Musa Estimated blood loss (mL): 1 Drains: No Packing: Yes Pathology: none sent Complications: No immediate complications Condition: stable Disposition: no change Findings: Small abscess just below the previously made incision. This was adequately drained and then packed following the procedure.
[2019-11-14] MEDS: DOCUSATE SODIUM 100 MG CAPSULE PO ×2 (13:00→20:36)
[2019-11-14] MEDS: INSULIN ASPART (*BKC) 100 UNITS/ML 8 UNITS SUB-Q ×2 (13:00→17:22)
[2019-11-14] MEDS: lisinopriL 10 MG TABLET PO (13:00)
[2019-11-14 13:07] LABS: Glucose Point of Care 200 (65-105)
[2019-11-14 14:00] VITALS: BP 145/69; PULSE 81; RESP 14; TEMP 36.4; O2SAT 99
--- NOTE | 2019-11-14 14:06 | PCNSR ---
On 11/14/19, the student, Presley Delgado, provided care and [facility] on this patient. I have reviewed the student's documentation and agree with the findings.
[2019-11-14 15:05] VITALS: BMI 40.9
[2019-11-14 16:07] LABS: Vancomycin Trough 11.4 ug/mL (10.0-20.0)
[2019-11-14] MEDS: VANCOMYCIN HCL 1,500 MG in SODIUM CHLORIDE 0.9% IV 500 ML 333 MG IVPB (16:11)
[2019-11-14] MEDS: ENOXAPARIN 40 MG/0.4 ML SYRINGE SUB-Q (17:22)
[2019-11-14 17:41] LABS: Glucose Point of Care 198 (65-105)
[2019-11-14 18:00] VITALS: BP 145/85; PULSE 77; RESP 14; TEMP 36.4; O2SAT 100
[2019-11-14] MEDS: INSULIN GLARGINE (*BKC) 100 UNITS/ML 34 UNITS SUB-Q (20:46)
[2019-11-14 21:19] VITALS: BP 142/77; PULSE 73; RESP 12; TEMP 36.6; O2SAT 99
[2019-11-14 21:27] LABS: Glucose Point of Care 139 (65-105)
[2019-11-15 02:00] VITALS: BP 146/80; PULSE 72; RESP 12; TEMP 36.6; O2SAT 99
[2019-11-15 05:35] LABS: Anion Gap 4 mmol/L (8-16); Blood Urea Nitrogen 10 mg/dL (9-20); Carbon Dioxide 31 mmol/L (22-30); Chloride 100 mmol/L (98-107); Estimated CRCL calculation 135 ml/min; Estimated Glomerular Filt Rate > 60; Glucose 160 mg/dL (75-110); Potassium 3.9 mmol/L (3.4-5.0); Sodium 135 mmol/L (137-145)
[2019-11-15 06:00] VITALS: BP 122/66; PULSE 64; RESP 16; TEMP 36.7; O2SAT 97
[2019-11-15] MEDS: lisinopriL 10 MG TABLET PO (08:07)
[2019-11-15] MEDS: metFORMIN HCL 250 MG TABLET PO (08:07)
[2019-11-15] MEDS: DOCUSATE SODIUM 100 MG CAPSULE PO (08:07)
[2019-11-15] MEDS: INSULIN ASPART (*BKC) 100 UNITS/ML 8 UNITS SUB-Q ×3 (08:08→16:58)
--- NOTE | 2019-11-15 08:34 | PM.PNGS ---
Progress Note: A&P Assessment and Plan (1) Abscess or cellulitis of thigh: Status: Acute Assessment and Plan: Continue daily shower and repack right thigh abscess with gauze. Continue IV antibiotics. (2) New onset type 2 diabetes mellitus: Code(s): E11.9 - Type 2 diabetes mellitus without complications Status: Acute Assessment and Plan: blood sugars continue to improve Subjective Subjective Date/Time Seen: 11/15/19 08:34 Patient reports: no new complaints and pain is less Review of Systems Constitutional: Constitutional: Denies chills and Denies fever(s) Exam Extrem: Left lower extremity: hip/thigh (superficial abscess noted, packing changed. Still very tender. No tracking.) Objective Data Vital Signs Vital Signs: Vital Signs - 24 hr 11/14/19 10:00 11/14/19 14:00 11/14/19 18:00 Temperature 36.7 C 36.4 C 36.4 C L Pulse Rate 67 81 77 Respiratory Rate 14 14 14 Blood Pressure 139/76 145/69 H 145/85 H Pulse Oximetry 98 99 100 11/14/19 21:19 11/15/19 02:00 11/15/19 06:00 Temperature 36.6 C 36.6 C 36.7 C Pulse Rate 73 72 64 Respiratory Rate 12 12 16 Blood Pressure 142/77 H 146/80 H 122/66 Pulse Oximetry 99 99 97 Intake/Output Intake/Output: Intake & Output 11/12/19 11/13/19 11/14/19 11/15/19 23:59 23:59 23:59 23:59 Intake Total 5320 3390 4030 810 Output Total 2800 3050 1770 1350 Balance 2520 340 2260 -540 Meds/Results Medications: Active Medications Generic Name Dose Route Start Last Admin Trade Name Freq PRN Reason Stop Dose Admin Acetaminophen 650 mg 11/11/19 17:58 Tylenol Tablet PO Q4H PRN Mild Pain (1-3) or Fever Hydrocodone Bitart/Acetaminophen 1 tab 11/11/19 17:58 11/11/19 20:17 [place] 5-325 Mg PO 1 tab Q4H PRN Administration Pain Rated 4-6 Dextrose 12.5 gm 11/11/19 19:56 Dextrose 50% Syringe IV PUSH PRN PRN Hypoglycemia Protocol Docusate Sodium 100 mg 11/14/19 13:00 11/15/19 08:07 Colace Capsule PO 100 mg Q12HR JAMI Administration Enoxaparin Sodium 40 mg 11/13/19 18:00 11/14/19 17:22 Lovenox SUB-Q 40 mg Q24H JAMI Administration Glucagon 1 mg 11/11/19 19:56 Glucagon For Inj IM PRN PRN Hypoglycemia Protocol Glucose 15 gm 11/11/19 19:56 Glutose 15 PO PRN PRN Hypoglycemia Protocol Dextrose 1,000 mls @ 100 mls/hr 11/11/19 19:56 Dextrose 5% 1,000 Ml IVPB PRN PRN Hypoglycemia Protocol Vancomycin HCl 1,750 mg/ 500 mls @ 333.333 mls/hr 11/14/19 22:00 11/15/19 07:15 Sodium Chloride IVPB Infused Q8H [facility] Infusion Insulin Aspart 3 - 6 units 11/12/19 08:00 11/15/19 08:07 Novolog SUB-Q Not Given TIDWM [facility] Protocol Insulin Aspart 8 units 11/13/19 12:00 11/15/19 08:08 Novolog 0.067 units/kg (8 units) 8 units SUB-Q Administration TIDWM [facility] Insulin Glargine 34 units 11/14/19 21:00 11/14/19 20:46 Lantus SUB-Q 34 units HS JAMI Administration Levofloxacin 500 mg 11/14/19 11:30 11/15/19 08:08 Levaquin Tab PO 500 mg DAILY JAMI Administration Lisinopril 10 mg 11/14/19 11:30 11/15/19 08:07 Prinivil PO 10 mg DAILY JAMI Administration Metformin HCl 250 mg 11/13/19 17:00 11/15/19 08:07 Glucophage PO 250 mg BIDWM JAMI Administration Morphine Sulfate 4 mg 11/11/19 17:58 11/14/19 11:59 Morphine Sulfate Inj IV PUSH 4 mg Q2H PRN Administration Pain Rated 7-10 Radiology Results: ITS Impressions Pelvis CT 11/11/19 17:44 IMPRESSION: Right gluteal, medial thigh cellulitis. Soft Tissue Ultrasound 11/13/19 14:07 IMPRESSION: 1. 1.9 x 1.1 x 1.5 cm likely draining abscess within a region of cellulitis at the medial right thigh/groin. Labs Labs: Laboratory Results - last 24 hr 11/14/19 11/14/19 11/14/19 12:58 15:03 17:21 Sodium Potassium Chloride Carbon Dioxide Anion Gap BUN Crea
[2019-11-15 08:40] LABS: Glucose Point of Care 167 (65-105)
[2019-11-15 10:00] VITALS: BP 174/81; PULSE 83; RESP 16; TEMP 36.4; O2SAT 98
[2019-11-15 12:13] LABS: Glucose Point of Care 170 (65-105)
[2019-11-15 14:00] VITALS: BP 137/64; PULSE 73; RESP 16; TEMP 36.4; O2SAT 99
--- NOTE | 2019-11-15 15:01 | PM.IMPN ---
Progress Note: A&P Assessment and Plan (1) Sepsis: Code(s): A41.9 - Sepsis, unspecified organism Status: Acute Assessment and Plan: Present on admission and supported by tachycardia, leukocytosis, and elevated lactic acid level. He received IV fluid rehydration. Repeat lactic acid level normal. WBC normal now. Tacycardia resolved. Blood cultures NGTD. (2) Cellulitis of right thigh: Code(s): L03.115 - Cellulitis of right lower limb Status: Acute Assessment and Plan: Patient presents with right thigh/groin cellulitis. CT showing no abscess but cellulitis of the gluteal and medial thigh. Blood cultures NGTD. He had increase pain in the groin and scrotal area so US obtained. US showing a 1.9cm likely draining abscess within a region of cellulitis at the medial right thigh/groin. This is probably what spontaseously drained. Surgery I and D 11/13. Currently on Levaquin and Vanco. (3) New onset type 2 diabetes mellitus: Code(s): E11.9 - Type 2 diabetes mellitus without complications Status: Acute Assessment and Plan: A1c 11.2%. Lantus started. The patient's blood glucose was reviewed on 11/15/19. Glucose better but still poorly controlled. Continue Metformin and increase to 500 bid and meal time insulin. Advance Lantus again to 35 hs. Continue AccuCheks covering with sliding scale. Hypoglycemia protocol available as needed. (4) Brugada syndrome: Code(s): I49.8 - Other specified cardiac arrhythmias Status: Acute Assessment and Plan: Found on an EKG prior to his cholecystectomy. He was evaluated by an nurse transplant somewhere in [place] and had a stress test and cardiac catheterization which were unrevealing and they were unable to induce dysrhythmia. He has not had a follow-up after initial evaluation 7-8 years ago. He denies signs and symptoms concerning for dysrhythmia. He was encouraged to tell all healthcare providers about this so as to avoid being started on contraindicated medications. (5) Elevated blood pressure reading: Code(s): R03.0 - Elevated blood-pressure reading, without diagnosis of hypertension Status: Acute Assessment and Plan: Patient's blood pressure was reviewed on 11/15/19. Blood pressure mildly elevated on admission but not unexpected given the pain and sepsis. BP remains reasonably well controlled now. Will continue to monitor. added ACEI and will increase to 20mg qd (6) DVT prophylaxis: Code(s): Z29.9 - Encounter for prophylactic measures, unspecified Status: Acute Assessment and Plan: Antonio Subjective Date/time seen: 11/15/19 15:01 Interval history: Date of visit 11/14. 44yo male here for right thigh wound and found to have hyperglycemia from newly diagnosed DM. No problems overnight. Trying not to take paiin meds and wanting to go home. No chest pain. No abdominal pain. Exam Narrative: Exam Narrative: AF 174/80 82 14 98% ra Gen - NARD Chest - clear, nml RR CV - RRR S1/S2 Abd - soft, obese, NT with purple striae Ext - no pedal edema Psych - nml mood and affect Skin - Decrease in size of the indurated area in the right groin fold. fading erythema noted in the medial proximal right thigh. Less tender overall. Objective Data Vital Signs Vital Signs: Vital Signs - 24 hr 11/14/19 18:00 11/14/19 21:19 11/15/19 02:00 Temperature 36.4 C L 36.6 C 36.6 C Pulse Rate 77 73 72 Respiratory Rate 14 12 12 Blood Pressure 145/85 H 142/77 H 146/80 H Pulse Oximetry 100 99 99 11/15/19 06:00 11/15/19 10:00 Temperature 36.7 C 36.4 C L Pulse Rate 64 83 Respiratory Rate 16 16 Blood Pressure 122/66 17
[2019-11-15] MEDS: metFORMIN HCL 500 MG TABLET PO (16:55)
[2019-11-15] MEDS: ENOXAPARIN 40 MG/0.4 ML SYRINGE SUB-Q (16:55)
[2019-11-15 17:06] LABS: Glucose Point of Care 178 (65-105)
[2019-11-15 18:00] VITALS: BP 139/78; PULSE 74; RESP 14; TEMP 36.6; O2SAT 99
[2019-11-15] MEDS: INSULIN GLARGINE (*BKC) 100 UNITS/ML 35 UNITS SUB-Q (20:53)
[2019-11-15 21:18] VITALS: BP 137/83; PULSE 73; RESP 16; TEMP 36.7; O2SAT 99
[2019-11-15 21:46] LABS: Vancomycin Trough 14.6 ug/mL (10.0-20.0)
[2019-11-15 21:57] LABS: Glucose Point of Care 193 (65-105)
--- NOTE | 2019-11-15 23:20 | PC.NURSE ---
2100 PT DRISS UP LANTUS INSULIN WITHOUT DIFFICULTY
[2019-11-16 02:00] VITALS: BP 138/74; PULSE 70; RESP 16; TEMP 36.2; O2SAT 99
[2019-11-16] MEDS: ACETAMINOPHEN 325 MG TABLET 650 MG PO (02:18)
[2019-11-16 05:08] LABS: Anion Gap 4 mmol/L (8-16); Blood Urea Nitrogen 10 mg/dL (9-20); Calcium 8.9 mg/dL (8.4-10.2); Carbon Dioxide 30 mmol/L (22-30); Chloride 102 mmol/L (98-107); Estimated CRCL calculation 156 ml/min; Estimated Glomerular Filt Rate > 60; Glucose 139 mg/dL (75-110); Potassium 3.8 mmol/L (3.4-5.0); Sodium 136 mmol/L (137-145)
[2019-11-16 05:51] VITALS: BP 138/74; PULSE 62; RESP 16; TEMP 36.1; O2SAT 98
[2019-11-16] MEDS: VANCOMYCIN HCL 2,000 MG in SODIUM CHLORIDE 0.9% IV 500 ML 250 MG IVPB (05:58)
--- NOTE | 2019-11-16 06:56 | PM.PNGS ---
Progress Note: A&P Assessment and Plan (1) Abscess or cellulitis of thigh: Status: Acute Assessment and Plan: patient or his to pack the abscess cavity daily. He should also shower daily. He can be discharged from a surgical standpoint. I would just resume his Bactrim that he was already taking before he came in the hospital. (2) New onset type 2 diabetes mellitus: Code(s): E11.9 - Type 2 diabetes mellitus without complications Status: Acute Assessment and Plan: Better glucose control. Will need outpatient follow-up. Subjective Subjective Date/Time Seen: 11/16/19 06:56 Patient reports: no new complaints (Feels better. Dressing keeps falling off is only complaint), pain is less and afebrile Review of Systems Constitutional: Constitutional: Denies body ache(s), Denies chills and Denies fever(s) Exam Extrem: Left lower extremity: hip/thigh ( packing removed, less erythema, seropurulent drainage noted.) Details: tenderness ( Less tender), swelling ( less swelling) and other ( No new abscesses, less tender.) Objective Data Vital Signs Vital Signs: Vital Signs - 24 hr 11/15/19 10:00 11/15/19 14:00 11/15/19 18:00 Temperature 36.4 C L 36.4 C 36.6 C Pulse Rate 83 73 74 Respiratory Rate 16 16 14 Blood Pressure 174/81 H 137/64 139/78 Pulse Oximetry 98 99 99 11/15/19 21:18 11/16/19 02:00 11/16/19 05:51 Temperature 36.7 C 36.2 C L 36.1 C L Pulse Rate 73 70 62 Respiratory Rate 16 16 16 Blood Pressure 137/83 138/74 138/74 Pulse Oximetry 99 99 98 Intake/Output Intake/Output: Intake & Output 11/13/19 11/14/19 11/15/19 11/16/19 23:59 23:59 23:59 23:59 Intake Total 3390 4030 2530 650 Output Total 3050 1770 2275 1000 Balance 340 2260 255 -350 Meds/Results Medications: Active Medications Generic Name Dose Route Start Last Admin Trade Name Freq PRN Reason Stop Dose Admin Acetaminophen 650 mg 11/11/19 17:58 11/16/19 02:18 Tylenol Tablet PO 650 mg Q4H PRN Administration Mild Pain (1-3) or Fever Hydrocodone Bitart/Acetaminophen 1 tab 11/11/19 17:58 11/11/19 20:17 [place] 5-325 Mg PO 1 tab Q4H PRN Administration Pain Rated 4-6 Dextrose 12.5 gm 11/11/19 19:56 Dextrose 50% Syringe IV PUSH PRN PRN Hypoglycemia Protocol Enoxaparin Sodium 40 mg 11/13/19 18:00 11/15/19 16:55 Lovenox SUB-Q 40 mg Q24H JAMI Administration Glucagon 1 mg 11/11/19 19:56 Glucagon For Inj IM PRN PRN Hypoglycemia Protocol Glucose 15 gm 11/11/19 19:56 Glutose 15 PO PRN PRN Hypoglycemia Protocol Dextrose 1,000 mls @ 100 mls/hr 11/11/19 19:56 Dextrose 5% 1,000 Ml IVPB PRN PRN Hypoglycemia Protocol Vancomycin HCl 2,000 mg/ 500 mls @ 333.333 mls/hr 11/16/19 06:00 11/16/19 05:58 Sodium Chloride IVPB 250 mls/hr Q8H JAMI Administration Insulin Aspart 3 - 6 units 11/12/19 08:00 11/15/19 16:54 Novolog SUB-Q Not Given TIDWM [facility] Protocol Insulin Aspart 8 units 11/13/19 12:00 11/15/19 16:58 Novolog 0.067 units/kg (8 units) 8 units SUB-Q Administration TIDWM [facility] Insulin Glargine 35 units 11/15/19 21:00 11/15/19 20:53 Lantus SUB-Q 35 units JAMI Administration Levofloxacin 500 mg 11/14/19 11:30 11/15/19 08:08 Levaquin Tab PO 500 mg DAILY JAMI Administration Lisinopril 10 mg 11/14/19 11:30 11/15/19 08:07 Prinivil PO 10 mg DAILY JAMI Administration Metformin HCl 500 mg 11/15/19 17:00 11/15/19 16:55 Glucophage PO 500 mg BIDWM JAMI Administration Morphine Sulfate 4 mg 11/11/19 17:58 11/14/19 11:59 Morphine Sulfate Inj IV PUSH 4 mg Q2H PRN Administration Pain Rated 7-10 Radiology Results: ITS Impressions Pelvis CT 11/11/19 17:44 IMPRESSION: Right gluteal, medial thigh cellulitis. Soft Tissue Ultrasound 11/13/19 14:07 IMPRESSION: 1. 1.9 x 1.1 x 1.5 cm likely
[2019-11-16 07:53] LABS: Glucose Point of Care 134 (65-105)
[2019-11-16] MEDS: lisinopriL 10 MG TABLET PO (08:05)
[2019-11-16] MEDS: metFORMIN HCL 500 MG TABLET PO (08:05)
[2019-11-16 08:10] VITALS: RESP 16; O2SAT 97
[2019-11-16] MEDS: INSULIN ASPART (*BKC) 100 UNITS/ML 8 UNITS SUB-Q (08:10)
[2019-11-16 10:00] VITALS: BP 136/74; PULSE 78; RESP 18; TEMP 36.6; O2SAT 98
--- NOTE | 2019-11-16 18:28 | PM.DS ---
DS: Admitting Diagnosis Admitting Diagnosis Admitting Diagnosis: Sepsis, unspecified organism DS: Discharge Diagnosis Discharge Diagnosis (1) Sepsis: Code(s): A41.9 - Sepsis, unspecified organism Status: Acute Assessment and Plan: Present on admission and supported by tachycardia, leukocytosis, and elevated lactic acid level. He received IV fluid rehydration. Repeat lactic acid level normal. WBC normal now. Tacycardia resolved. Blood cultures NGTD. all resolved (2) Cellulitis of right thigh: Code(s): L03.115 - Cellulitis of right lower limb Status: Acute Assessment and Plan: Patient presents with right thigh/groin cellulitis. CT showing no abscess but cellulitis of the gluteal and medial thigh. Blood cultures NGTD. He had increase pain in the groin and scrotal area so US obtained. US showing a 1.9cm likely draining abscess within a region of cellulitis at the medial right thigh/groin. This is probably what spontaseously drained. Surgery I and D 11/13. on Levaquin and Vanco while here and discharged home on Bactrim ds 1 p.o. b.i.d. with daily packings of wound and follow-up with Dr. zazueta 11/23. (3) New onset type 2 diabetes mellitus: Code(s): E11.9 - Type 2 diabetes mellitus without complications Status: Acute Assessment and Plan: A1c 11.2%. Lantus started. The patient's blood glucose was reviewed on 11/16/19. Glucose better but still poorly controlled. Continue Metformin and increase to 500 bid and meal time insulin. Advance Lantus again to 35 hs. and Humalog 6 units a.c.. Follow-up with primary care within 2 weeks (4) Brugada syndrome: Code(s): I49.8 - Other specified cardiac arrhythmias Status: Acute Assessment and Plan: Found on an EKG prior to his cholecystectomy. He was evaluated by an director teen post somewhere in [place] and had a stress test and cardiac catheterization which were unrevealing and they were unable to induce dysrhythmia. He has not had a follow-up after initial evaluation 7-8 years ago. He denies signs and symptoms concerning for dysrhythmia. He was encouraged to tell all healthcare providers about this so as to avoid being started on contraindicated medications. (5) Elevated blood pressure reading: Code(s): R03.0 - Elevated blood-pressure reading, without diagnosis of hypertension Status: Acute Assessment and Plan: Patient's blood pressure was reviewed on 11/16/19. Blood pressure mildly elevated on admission but not unexpected given the pain and sepsis. BP remains reasonably well controlled now. Will continue to monitor. added ACEI , lisinopril at 10mg qd (6) DVT prophylaxis: Code(s): Z29.9 - Encounter for prophylactic measures, unspecified Status: Acute Assessment and Plan: Lovenox while inpatient DS: Summary Hospital Course Hospital Course: 44-year-old white male admitted with abscess of proximal thigh and new onset diabetes blood sugar over 500. And not ketotic hydrated placed on antibiotics, and surgery I and D the wound with 11/13. Insulin was adjusted and sugars fell on Lantus 35 HS with Humalog 6 t.i.d. a.c. at discharge discharge paper relate novolog but pharmacy changed to Humalog wound continue to improve white count returned to normal and blood cultures were negative. Discharged on Bactrim ds 1 p.o. b.i.d. and follow-up with Dr. zazueta 11/23. will have daily dressing changes at home Time Spent with Patient Time attestation: Total time spent providing and/or coordinating discharge services: 35 minutes Exam Narrative: Exam Narrative: condition on discharge blood pressure 136/74 pulse 78 saturat
== END 2019-11-16 11:45 | disposition home or self-care (01) | DRG 872 ==
LOC: ANHED 18:04 → ANH2MED 18:42
PROVIDERS: Internal Medicine; Physician Assistant; Admitting Provider Family Medicine; Emergency Provider Emergency Medicine; Visit Provider Internal Medicine
DX: A41.9 Sepsis, unspecified organism (principal); L02.214 Cutaneous abscess of groin; L03.115 Cellulitis of right lower limb; Z68.41 Body mass index [BMI] 40.0-44.9, adult; E66.01 Morbid (severe) obesity due to excess calories; E11.65 Type 2 diabetes mellitus with hyperglycemia; I49.8 Other specified cardiac arrhythmias; R03.0 Elevated blood-pressure reading, without diagnosis of hypertension; K21.9 Gastro-esophageal reflux disease without esophagitis; Z90.49 Acquired absence of other specified parts of digestive tract; Z87.891 Personal history of nicotine dependence
CPT/HCPCS: 36415; 72193; 76857; 80048; 80053; 80061; 80202; 82533; 82948; 83036; 83605; 83735; 84443; 85025; 85027; 85652; 86140; 87040; 96361; 96365; 96366; 96367; 96375; 96376; 99285; A9270; G0378; J0743; J1650; J1815; J2270; J2405; J3370; J7030; J7040; Q9967

== ENCOUNTER 2020-04-11 14:30 | Outpatient (RCR) | payer BC, SELFPAY ==
[2020-01-24 14:02] VITALS: BMI 41.6
[2020-01-24 14:10] VITALS: BMI 41.6
== END 2020-04-13 12:36 | disposition home or self-care (01) ==
LOC: ANHDMC 14:30
PROVIDERS: PCP Family Medicine; Visit Provider Physician Assistant
DX: E11.65 Type 2 diabetes mellitus with hyperglycemia (principal); Z71.3 Dietary counseling and surveillance; Z71.89 Other specified counseling; Z79.4 Long term (current) use of insulin
CPT/HCPCS: 97802; G0108; G0109

== ENCOUNTER 2020-05-26 13:43 | Outpatient (CLI) | payer BC, SELFPAY ==
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
== END 2020-05-26 13:44 | disposition home or self-care (01) ==
LOC: ANHIMG 13:49
PROVIDERS: PCP Family Medicine; Visit Provider Family Medicine
DX: M54.5 Low back pain (principal)
CPT/HCPCS: 72110

== ENCOUNTER 2020-07-24 15:47 | Outpatient (RCR) | payer BC, SELFPAY | END 2020-07-27 10:55 | disposition home or self-care (01) | LOC: ANHDMC 15:47 | PROVIDERS: PCP Family Medicine; Visit Provider Physician Assistant | DX: E11.65 Type 2 diabetes mellitus with hyperglycemia (principal); Z71.89 Other specified counseling | CPT/HCPCS: G0108 ==

== ENCOUNTER 2022-01-17 17:10 | Outpatient (CLI) | payer OTHER, BC, SELFPAY ==
--- NOTE | ~2022-01-17 | XR_ITS ---
EXAM: XR shoulder RT min 2V, XR humerus RT DATE: 01/17/2022 17:32 (accession [id number]), 01/17/2022 17:33 (accession [id number]) HISTORY: M25.511 - Pain in right shoulder; fell 1 mo ago . COMPARISON: None available. FINDINGS: Normal mineralization. No fracture or dislocation. No lytic or blastic lesion. Joint space s are maintained. No erosion or periosteal change. Soft tissues within normal limits. IMPRESSION: No acute osseous finding in the right shoulder or humerus. Reviewed, dictated and finalized at location K. IMPRESSION: No acute osseous finding in the right shoulder or humerus.
== END 2022-01-17 17:11 | disposition home or self-care (01) ==
LOC: ANHIMG 17:15
PROVIDERS: PCP Family Medicine; Visit Provider Physician Assistant
DX: M25.511 Pain in right shoulder (principal); M79.601 Pain in right arm
CPT/HCPCS: 73030; 73060

== ENCOUNTER 2022-03-28 08:44 | Outpatient (CLI) | payer OTHER, SELFPAY ==
--- NOTE | ~2022-03-28 | XR_ITS ---
EXAMINATION: XR fl inj shoulder RT - MR/CT DATE: 03/28/2022 10:33 INDICATION: Right shoulder pain. No prior surgery. Remote history of dislocation. TECHNIQUE: A time-out was performed to verify the patient's name, date of , and procedure to b e performed. The procedure including the risks, benefits, and alternatives was discussed with the pat ient. Risks discussed included bleeding and infection. The patient understood the risks and agreed to proceed. The skin overlying the right glenohumeral joint was prepped and draped in usual sterile fas hion. Anesthetic was administered with 1% lidocaine subcutaneously. A 22 G needle was advanced unde r fluoroscopic guidance into the joint. Subsequently, injectate consisting of 12 mL of 1:200 Multiha nce, 1:4 1% lidocaine, and 1:4 Omnipaque 240 was instilled. The needle was removed and the entry sit e was cleaned and dressed. There were no immediate complications. Fluoroscopy exposure time was 0.0 minutes. The total number of images was 3. FINDINGS: Real-time fluoroscopy demonstrates the needle and contrast in the right glenohumeral joint. IMPRESSION: 1. Successful right glenohumeral joint injection of contrast for subsequent MR arthrography. Reviewed, dictated and finalized at location A. CH AND LANGUAGE CLINICIAN
--- NOTE | ~2022-03-28 | MR_ITS ---
MR arthrogram of the right shoulder Technique: Following intra-articular injection of dilute gadolinium, axial T1-weighted fat-sat and T2 weighted fat-sat imaging, coronal T2 fat-sat and T1 fat-sat imaging, and sagittal T1-weighted and T2 fat-sat images were performed. T1 fat-sat abduction external rotation position imaging was also perf ormed. Clinical History: Pain Findings: There is mild degenerative change at the AC joint, without significant subacromial spur. Co racoclavicular, coracoacromial, and coracohumeral ligaments are intact. There is focal moderate tendinosis of the distal supraspinatus tendon anteriorly. No partial or full- thickness tear of the supraspinatus or infraspinatus tendon is identified. Subscapularis tendon is in tact, without partial or full-thickness tear. Tendon of the long head of the biceps is intact. There is anteroinferior labral tear extending to the anterior portion at the equator Inferior glenohumeral ligament is intact. Probable minimal chondromalacia of the glenohumeral joint n oted. No fluid distention of, nor contrast extravasation into, the subacromial/subdeltoid bursa. No m uscle atrophy or edema identified. Impression: Anteroinferior labral tear extending to the anterior portion at the equator. Focal moderate tendinosis of the distal supraspinatus tendon. No partial or full-thickness rotator cu ff tear seen. Reviewed, dictated and finalized at [facility]. 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 Focal moderate tendinosis of the distal supraspinatus tendon. No partial or ful l-thickness rotator cuff tear seen.
== END 2022-03-28 08:45 | disposition home or self-care (01) ==
PROVIDERS: PCP Family Medicine; Visit Provider Orthopaedic Surgery
DX: S43.491A Other sprain of right shoulder joint, initial encounter (principal); X58.XXXA Exposure to other specified factors, initial encounter
CPT/HCPCS: 23350; 73222; 77002; A9577; Q9966

== ENCOUNTER 2022-07-25 15:58 | Outpatient (CLI) | payer OTHER, SELFPAY ==
--- NOTE | ~2022-07-25 | XR_ITS ---
Cervical Spine: AP, lateral, open-mouth views Clinical History: Pain Findings: There is mild reversal of the normal cervical lordosis.. The vertebral bodies and posterio r elements appear intact. The intervertebral disc spaces are well maintained. Pre-vertebral soft tis sues are unremarkable. Impression: Mild reversal of the normal cervical lordosis, otherwise unremarkable exam. Reviewed, dictated and finalized at [facility]. Impression: Mild reversal of the normal cervical lordosis, otherwise unremarkable exam.
== END 2022-07-25 15:59 | disposition home or self-care (01) ==
PROVIDERS: PCP Family Medicine; Visit Provider Nurse Practitioner Gerontology
DX: M54.2 Cervicalgia (principal)
CPT/HCPCS: 72050

== ENCOUNTER 2023-06-17 08:57 | Outpatient (CLI) | payer OTHER, SELFPAY ==
--- NOTE | ~2023-06-17 | MR_ITS ---
EXAMINATION: MR shoulder RT wo con DATE: 06/17/2023 09:55 INDICATION: Right shoulder pain TECHNIQUE: Magnetic resonance imaging (MRI) of the right shoulder was performed without intravenous c ontrast. Sequences included axial PD-weighted FS FSE, coronal oblique PD-weighted FS FSE, coronal obl ique T2-weighted FS FSE, sagittal PD-weighted FS FSE, and sagittal T1-weighted SE. COMPARISON: None. FINDINGS: Coracoacromial arch: The acromion undersurface is flat in morphology (type I). The acromial side of the coracoacromial lig ament appears thickened and indistinct with increased signal, unclear whether this is degenerative or related to interval debridement/partial release from the acromial attachment. Mild to moderate acrom ioclavicular osteoarthritis with degenerative subarticular edema-like and cystlike changes at the lat eral head of the clavicle. Rotator cuff: Mild supraspinatus and infraspinatus tendinopathy grade septic conjoined portion of the tendon but wi thout discrete tear. The teres minor tendon is normal. Mild subscapularis tendinopathy without discre te tear. Normal rotator cuff muscle bulk and signal. Biceps tendon, glenoid labrum and glenohumeral cartilage: Interval bicipital tenodesis with small focus of susceptibility artifact along the anterior cortex of the proximal humeral metadiaphysis distal to the intertubercular groove. The biceps tendon appears l ikely avulsion from its anchor site and retracted approximately 2 cm more distally which is best appr eciated on the coronal image series 4 & 5, image 13. There is mild glenohumeral osteoarthritis with d iffuse partial thickness cartilage thinning with smooth chondral surface along the glenoid. There is degenerative tearing versus postoperative scarring at the superior to posterosuperior glenoid labrum with irregular margins and increased fluid signal. Again seen is a small tear with subtle linear incr eased fluid signal at the anteroinferior glenoid labrum. The inferior labrum remains diminutive consi stent with likely chronic degeneration. Fluid: Physiologic amount of fluid in the glenohumeral joint. Small joint effusion at the acromioclavicular joint. No loose osteochondral bodies. Small amount of fluid in the subacromial/subdeltoid bursa consi stent with mild bursitis. Bones: Bone alignment is normal. No fracture or pathologic marrow replacing process. IMPRESSION: 1. Interval bicipital tenodesis with suggestion of tear and 2 cm distal retraction of the biceps tend on from its anchor site at the caudal aspect of the intertubercular groove. 2. Mild glenohumeral osteoarthritis with chronic tear at the anteroinferior glenoid labrum and degene ration of the inferior labrum. New irregularity and increased signal at the superior to posterosuperi or glenoid labrum could represent interval before degeneration or more likely scarring related to int erval resection of the glenoid attachment of the long head biceps tendon. 3. Mild rotator cuff tendinopathy without tear. 4. Mild subacromial/subdeltoid bursitis. 5. Mild to moderate acromioclavicular osteoarthritis with new small joint effusion. 6. Thickening and mild increased signal at the acromial side of the coracoacromial ligament which cou ld be degenerative in etiology or related to partial resection/debridement. Reviewed, dictated and finalized at location B. IMPRESSION: 1. Interval bicipital tenodesis with suggestion of tear and 2 cm distal retract ion of the biceps tendon from its anchor site at the caudal aspect of the inter tubercular groove. 2. Mild glenohumeral osteoarthritis with chronic tear at the anteroinferior gle noid labrum and degeneration of the inferior labrum. New irregularity and incre ased signal at the superior to posterosuperior glenoid labrum could re
== END 2023-06-17 08:58 ==
LOC: GOSHIMG 09:01
PROVIDERS: PCP Family Medicine; Visit Provider Orthopaedic Surgery Sports Medicine
DX: M19.011 Primary osteoarthritis, right shoulder (principal); M75.51 Bursitis of right shoulder; M75.21 Bicipital tendinitis, right shoulder
CPT/HCPCS: 73221

== ENCOUNTER 2023-09-13 18:32 | Emergency (ER) | payer BC, SELFPAY ==
[2023-09-13 18:36] VITALS: BP 182/106; PULSE 69; RESP 20; TEMP 36.7; O2SAT 98
[2023-09-13 18:45] VITALS: RESP 20; O2SAT 98
[2023-09-13] MEDS: METHYLNALTREXONE 12 MG/0.6 ML VIAL SUB-Q (19:29)
--- NOTE | 2023-09-13 19:33 | ED.RECABL ---
HPI - Recheck/Abnormal Lab/Rx General Chief Complaint: Recheck/Abnormal Lab/Rx Stated Complaint: post op problems Time Seen by Provider: 09/13/23 18:57 History of Present Illness HPI narrative: patient presents with constipation and abdominal distention and some lower extremity edema bilaterally since he had his shoulder surgery and started taking Percocet. He states that his shoulder does not even hurt, but that he is unable to have a bowel movement, he has tried magnesium citrate and enemas without improvement Related Data Home Medications Medication Instructions Recorded Confirmed omeprazole 40 mg capsule,delayed 40 mg PO DAILY 11/11/19 08/07/23 release Allergies Allergy/AdvReac Type Severity Reaction Status Date / Time acetaminophen [From Vicodin] Allergy Intermediate Agitated Verified 09/13/23 18:42 hydrocodone [From Vicodin] Allergy Intermediate Agitated Verified 09/13/23 18:42 lisinopril AdvReac Intermediate cough Verified 09/13/23 18:42 Review of Systems Review of Systems: All systems reviewed & are unremarkable except as noted in HPI and below PMFSH Past Medical History Medical History (Updated 09/13/23 @ 20:52 by Kayleigh Yang MD) WHIT-inhibitor cough Benign essential HTN Brugada syndrome Found on an EKG prior to his cholecystectomy. He was evaluated by an graduate internship somewhere in [place], and had a stress test and cardiac catheterization which were unrevealing and they were unable to induce dysrhythmia. Gastroesophageal reflux disease Low back pain Morbid obesity with body mass index (BMI) of 40.0 or higher Surgical History Surgical History History of cardiac cath 2013 History of incision and drainage 11/14/19 History of knee surgery right and left History of laparoscopic cholecystectomy 2011 History of ventral hernia repair Family History Family History Mother Diabetes mellitus Emphysema of lung Asthma Father Diabetes mellitus Acute myocardial infarction Heart disease Sibling , Brother suddenly at age 25. Unknown if he also had Brugada syndrome. Sudden Social History Social History (Updated 08/07/23 @ 15:26 by Ashley Mejia) Social History: He works in [employer]. He smoked 1 pack of cigarettes a day and quit in 2011. No alcohol or illicit substance abuse. 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 Smoking packs per day: 1 Smoking cigarettes per day: 20.0 Years smoked: 16 Smoking pack-years: 16.00 Smoking status: Former smoker Tobacco type: smokeless tobacco Smokeless tobacco user: chewing tobacco Second hand tobacco smoke exposure: Yes Smoking end date: 07/05/11 Alcohol intake: current Alcohol use details: Rarely Substance use: never Substance use type: does not use Do You Feel Safe in your Home?: Yes Lack of Transportation: No Lack of Food: Never True Current Housing: I Have Housing Concerned About Future Housing: No Difficulty Paying Gas/Electric Bills: No Difficulty Paying for Meds: No Currently Unemployed: No Education: Don't Know Difficulty w/ Childcare or Family Care: No Living arrangements: with family Occupation/Education: occupation 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 EYES: EOMI, conjunctiva normal ENT: Hearing grossly intact LUNGS: Nonlabored breathing. HEART: [Regular rate and rhythm] ABD: [Soft], [nontender to palpation], slight
[2023-09-13 20:00] LABS: Basophils Percent Auto 0.6 % (0.2-1.2); Eosinophils Absolute Auto 0.1 K/mm3 (0-0.3); Eosinophils Percent Auto 1.3 % (0-4.4); Hematocrit 39.2 % (42.0-52.0); Hemoglobin 13.4 g/dL (14.0-18.0); Immature Granulocyte Absolute 0.04 K/mm3 (0.00-0.031); Immature Granulocyte Percent A 0.6 % (0-0.5); Lymphocytes Percent Auto 19.3 % (18.3-44.2); Mean Corpuscular HGB Conc 34.2 g/dl (32-36); Mean Corpuscular Hemoglobin 30.6 pg (26-34); Mean Corpuscular Volume 89.5 fl (80-100); Monocytes Absolute Auto 0.4 K/mm3 (0.1-0.6); Monocytes Percent Auto 5.9 % (2.6-8.5); Neutrophils Absolute Auto 4.9 K/mm3 (1.3-6.7); Neutrophils Percent Auto 72.3 % (45.5-73.1); Platelet Count Result 171 k/mm3 (150-375); Red Blood Count 4.38 M/mm3 (4.6-6.20); Red Cell Distribution Width 12.8 % (11.5-14.5); White Blood Count 6.7 K/mm3 (4.5-10.0)
[2023-09-13 20:12] LABS: Alanine Aminotransferase 61 U/L (6-50); Albumin Level 4.1 g/dL (3.5-5.1); Alkaline Phosphatase 64 U/L (38-126); Anion Gap 5 mmol/L (4-12); Aspartate Amino Transferase 28 U/L (17-59); Bilirubin,Total 0.8 mg/dL (0.2-1.3); Blood Urea Nitrogen 22 mg/dL (9-20); Calcium 9.5 mg/dL (8.4-10.2); Carbon Dioxide 28 mmol/L (22-30); Chloride 106 mmol/L (98-107); Estimated CRCL calculation 140 ml/min; Estimated Glomerular Filt Rate > 60; Glucose 119 mg/dL (65-110); Magnesium 2.2 mg/dL (1.6-2.3); Potassium 4.1 mmol/L (3.4-5.0); Sodium 139 mmol/L (137-145)
[2023-09-13 20:19] LABS: NT Pro B Type Natriuretic Pept 214 pg/mL (19.9-100)
[2023-09-13] MEDS: FUROSEMIDE 10 MG TABLET PO (21:39)
== END 2023-09-13 21:44 | disposition home or self-care (01) ==
PROVIDERS: Emergency Provider Emergency Medicine; PCP Family Medicine
DX: K59.00 Constipation, unspecified (principal); M79.89 Other specified soft tissue disorders; I10 Essential (primary) hypertension; K21.9 Gastro-esophageal reflux disease without esophagitis; E66.01 Morbid (severe) obesity due to excess calories; Z68.42 Body mass index [BMI] 45.0-49.9, adult
CPT/HCPCS: 36415; 80053; 83735; 83880; 85025; 96360; 99283; A9270; J2212

== ENCOUNTER 2024-10-03 01:33 | Day surgery (SDC) | payer BC, SELFPAY ==
[2024-09-09 08:36] VITALS: BMI 40.4
[2024-10-03 07:45] VITALS: BP 150/74; PULSE 66; RESP 18; TEMP 36.3; O2SAT 96
[2024-10-03] MEDS: LACTATED RINGERS 1,000 ML 150 ML IV CONT (07:59)
[2024-10-03 08:00] LABS: Glucose Point of Care 144 mg/dl (65-105)
--- NOTE | 2024-10-03 08:16 | P.PNAN_ITS ---
Anes - Initial Pre Proc Eval Procedure: Operation Date: 10/03/24 09:00 Proposed Procedures p Screening Colonoscopy - Zach Chilel DO Date/Time: 10/03/24 08:16 Surgeon: Zach Chilel DO Pre Op Diagnosis: Neoplasm screening Patient Data Age: 48 Gender: M Height: 1.68 m Weight: 121.6 kg Last Vital Signs Temp 36.3 C L 10/03/24 07:45 Pulse 66 10/03/24 07:45 Resp 18 10/03/24 07:45 BP 150/74 H 10/03/24 07:45 Pulse Ox 96 10/03/24 07:45 O2 Del Method Room Air 10/03/24 07:45 Allergies Allergy/AdvReac Type Severity Reaction Status Date / Time acetaminophen (From Vicodin) Allergy Intermediate Agitated Verified 09/09/24 08:26 hydrocodone (From Vicodin) Allergy Intermediate Agitated Verified 09/09/24 08:26 lisinopril AdvReac Intermediate cough Verified 09/09/24 08:26 Home Medications ?Medication ?Instructions ?Recorded ?Confirmed ?Type lancets (Microlet Lancet) #300 ea 11/23/20 09/06/24 Rx pen needle, diabetic 31 gauge x #1,200 ea 10/28/21 09/06/24 Rx 5/16 (BD Ultra-Fine Short Pen Needle) blood-glucose sensor (Dexcom G6 #9 ea 03/13/22 09/06/24 Rx Sensor device) blood-glucose,land degradation analyst,cont #9 ea 07/29/22 09/06/24 Rx (Dexcom G7 Chief Procurement Officer) tadalafil 5 mg tablet (Cialis) 5 mg PO DAILY #30 tabs 10/14/22 09/09/24 Rx blood-glucose sensor (Dexcom G7 #9 ea 10/23/22 09/06/24 Rx Sensor device) blood sugar diagnostic (Contour #300 ea 05/03/23 09/06/24 Rx Next Test Strips) FreeStyle Lite Meter #1 ea 05/29/23 09/06/24 Rx (blood-glucose meter) blood sugar diagnostic (FreeStyle #100 ea 05/29/23 09/06/24 Rx Lite Strips) irbesartan 300 mg tablet 300 mg PO DAILY #90 tabs 05/11/24 10/03/24 Rx nifedipine 60 mg tablet,extended 60 mg PO DAILY #90 tabs 08/11/24 10/03/24 Rx release 24 hr (Procardia XL) semaglutide 2 mg/dose (8 mg/3 mL) 2 mg (0.75 mL) subcut WEEKLY 90 09/06/24 10/03/24 Rx subcutaneous pen injector (Ozempic) days #9.75 mL Laboratory Tests 10/03/24 07:53 POC Capillary Glucose 144 H mg/dl (65-105) Patient hx anesthesia problems: none Family hx anesthesia problems: none Results Review: All pre-operative results and documents have been reviewed as part of the pre- operative evaluation. [facility] Past Medical History Medical History Low back pain WHIT-inhibitor cough Benign essential HTN Morbid obesity with body mass index (BMI) of 40.0 or higher Gastroesophageal reflux disease Brugada syndrome Found on an EKG prior to his cholecystectomy. He was evaluated by an research & insights executive somewhere in [place], and had a stress test and cardiac catheterization which were unrevealing and they were unable to induce dysrhythmia. Surgical History Surgical History History of knee surgery right and left History of cardiac cath 2013 History of incision and drainage 11/14/19 History of ventral hernia repair History of laparoscopic cholecystectomy 2011 Family History Family History Mother Diabetes mellitus Emphysema of lung Asthma Father Diabetes mellitus Acute myocardial infarction Heart disease Sibling , Brother suddenly at age 25. Unknown if he also had Brugada syndrome. Sudden Social History Social History (Updated 10/03/24 @ 08:17 by Ryan Cruz MD) Social History: He works in [employer]. He smoked 1 pack of cigarettes a day and quit in 2011. No alcohol or illicit substance abuse. 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 Smoking packs per day: 1 Smoking cigarettes per day: 20.0 Years smoked: 16 Smoking pack-years: 16.00 Smoking status: Former smoker Tobacco type: smokeless tobacco Smokeless tobacco user: chewing tobacco Second hand tobacco smoke exposure: Yes Smoking end date: 07/05/11 Alcohol intake: never Alcohol use details: Rarely Substance use: never Substance use type: does not use Do You Feel Safe in your Home?: Yes Lack of Transportation: No Lack of Food: Never True Current Housing: I Have Housing Concerned About Future Housing: No Difficulty Paying Gas/Electric Bills: No Difficulty Paying for Meds: No Currently Unemployed: No Education: Don't Know Difficulty w/ Childcare or Family Care: No Living arrangements: with family Occupation/Education: occupation 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- [employer] Gender identity (if verbalized by the patient): Male Sexual Orientation (if Verbalized by the Patient): Straight or Heterosexual Spiritual care concerns: No Anes - Eval Final PreProcedure Day of Procedure 10/03/24 08:16 Patient weight: morbidly obese Heart: regular rate and rhythm Lungs: clear to auscultation Airway: Mallampati scale class II Neurological: alert and oriented Last oral intake: >/= 8 hours ASA classification: III Emergent: no Anesthetic plan: proceed Anesthesia type and monitoring: general GIVS and standard monitoring Results Review: All pre-operative results and documents have been reviewed as part of the pre- operative evaluation. Informed Consent: The patient's anesthetic plan and its attendant risks and benefits were discussed with the patient/family/POA. Questions were solicited and answers provided to the satisfaction of the patient/family/POA.
--- NOTE | 2024-10-03 09:09 | PM.IMHP ---
H&P: HPI History of Present Illness Date/Time: 10/03/24 09:09 Chief Complaint: screening for colorectal cancer Narrative: this 48 year old man who presents for colonoscopy. He had a colonoscopy about 10 years ago which was done for rectal bleeding but was otherwise normal. He denies any family history of colon cancer. He denies any current hematochezia or melena. Review of Systems Review of Systems: All systems reviewed & are unremarkable except as noted in HPI and below Constitutional: Constitutional: Denies chills, Denies fever(s), Denies headache(s) and Denies weight loss Eyes: Eyes: Denies change in vision ENT: Denies dizziness, Denies headache(s), Denies neck mass and Denies throat swelling Cardiovascular: Cardiovascular: Denies chest pain, Denies lightheadedness and Denies dyspnea Respiratory: Respiratory: Denies cough, Denies dyspnea and Denies wheezing Gastrointestinal: Gastrointestinal: Denies abdominal pain, Denies change in bowel habits, Denies nausea and Denies vomiting Genitourinary: Genitourinary: Denies hematuria and Denies dysuria Musculoskeletal: Musculoskeletal: Reports as per HPI Integumentary/Breasts: Skin/Breast: Reports as per HPI Neurologic: Denies dizziness and Denies headache(s) Allergic/Immunologic: Allergic/Immunologic: Denies throat swelling and Denies wheezing PMF Past Medical History Medical History Low back pain WHIT-inhibitor cough Benign essential HTN Morbid obesity with body mass index (BMI) of 40.0 or higher Gastroesophageal reflux disease Brugada syndrome Found on an EKG prior to his cholecystectomy. He was evaluated by an software applications architect somewhere in [place], and had a stress test and cardiac catheterization which were unrevealing and they were unable to induce dysrhythmia. Surgical History Surgical History History of knee surgery right and left History of cardiac cath 2013 History of incision and drainage 11/14/19 History of ventral hernia repair History of laparoscopic cholecystectomy 2011 Family History Family History Mother Diabetes mellitus Emphysema of lung Asthma Father Diabetes mellitus Acute myocardial infarction Heart disease Sibling , Brother suddenly at age 25. Unknown if he also had Brugada syndrome. Sudden Social History Social History (Updated 10/03/24 @ 08:17 by Ryan Cruz MD) Social History: He works in [employer]. He smoked 1 pack of cigarettes a day and quit in 2011. No alcohol or illicit substance abuse. 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 Smoking packs per day: 1 Smoking cigarettes per day: 20.0 Years smoked: 16 Smoking pack-years: 16.00 Smoking status: Former smoker Tobacco type: smokeless tobacco Smokeless tobacco user: chewing tobacco Second hand tobacco smoke exposure: Yes Smoking end date: 07/05/11 Alcohol intake: never Alcohol use details: Rarely Substance use: never Substance use type: does not use Do You Feel Safe in your Home?: Yes Lack of Transportation: No Lack of Food: Never True Current Housing: I Have Housing Concerned About Future Housing: No Difficulty Paying Gas/Electric Bills: No Difficulty Paying for Meds: No Currently Unemployed: No Education: Don't Know Difficulty w/ Childcare or Family Care: No Living arrangements: with family Occupation/Education: occupation 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- [employer] Gender identity (if verbalized by the patient): Male Sexual Orientation (if Verbalized by the Patient): Straight or Heterosexual Spiritual care concerns: No Meds Home Medications and Allergies Home Medications ?Medication ?Instructions ?Recorded ?Confirmed ?Type lancets (Microlet Lancet) #300 ea 11/23/20 09/06/24 Rx pen needle, diabetic 31 gauge x #1,200 ea 10/28/21 09/06/24 Rx 5/16 (BD Ultra-Fine Short Pen Needle) blood-glucose sensor (Dexcom G6 #9 ea 03/13/22 09/06/24 Rx Sensor device) blood-glucose,detective youth bureau,cont #9 ea 07/29/22 09/06/24 Rx (Dexcom G7 Senior Clinical Research Scientist) tadalafil 5 mg tablet (Cialis) 5 mg PO DAILY #30 tabs 10/14/22 09/09/24 Rx blood-glucose sensor (Dexcom G7 #9 ea 10/23/22 09/06/24 Rx Sensor device) blood sugar diagnostic (Contour #300 ea 05/03/23 09/06/24 Rx Next Test Strips) FreeStyle Lite Meter #1 ea 05/29/23 09/06/24 Rx (blood-glucose meter) blood sugar diagnostic (FreeStyle #100 ea 05/29/23 09/06/24 Rx Lite Strips) irbesartan 300 mg tablet 300 mg PO DAILY #90 tabs 05/11/24 10/03/24 Rx nifedipine 60 mg tablet,extended 60 mg PO DAILY #90 tabs 08/11/24 10/03/24 Rx release 24 hr (Procardia XL) semaglutide 2 mg/dose (8 mg/3 mL) 2 mg (0.75 mL) subcut WEEKLY 90 09/06/24 10/03/24 Rx subcutaneous pen injector (Ozempic) days #9.75 mL Allergies Allergy/AdvReac Type Severity Reaction Status Date / Time acetaminophen (From Vicodin) Allergy Intermediate Agitated Verified 09/09/24 08:26 hydrocodone (From Vicodin) Allergy Intermediate Agitated Verified 09/09/24 08:26 lisinopril AdvReac Intermediate cough Verified 09/09/24 08:26 Vital Signs Vital Signs - 24 hr 10/03/24 07:45 Temperature 97.3 F L Pulse Rate 66 Respiratory Rate 18 Blood Pressure 150/74 H Pulse Oximetry 96 Oxygen Delivery Room Air Exam Const: General: no acute distress and alert Orientation/consciousness: patient oriented x3 HENMT: Head: normocephalic and atraumatic Ears: hearing grossly normal bilaterally Face/Nose/Sinus: Normal nares present Mouth: Yes Normal oral and palatal mucosa present Eyes: Periorbital: periorbital findings normal Sclera: sclerae normal EOM: EOMs intact bilaterally Neck: Neck: normal visual inspection, no lymphadenopathy and trachea midline Chest: Chest palpation & inspection: normal inspection of the chest Resp: Effort & Inspection: normal respiratory effort Auscultation: clear to auscultation bilaterally Cardio: Jugular venous distension: no JVD Rate: regular rate Rhythm: regular rhythm Heart sounds: S1 normal heart sound present and S2 normal heart sound present Peripheral pulses: Peripheral pulses 2+ throughout GI: Inspection: normal to inspection GI Palp: Yes Soft to palpation, No Tenderness to palpation present (GI), No Guarding due to palpation present (GI) and No Rebound tenderness present Percussion: Yes normal to percussion Auscultation: normal bowel sounds : General: Yes no CVA tenderness Back/Spine/Pelvis: Back: no CVA tenderness Neuro: General: patient oriented x3, no focal motor deficits and CN's II-XI intact bilaterally Cognition (Neuro): normal cognition Speech: normal speech Motor exam (neuro): 5/5 motor strength present throughout Extrem: General: capillary refill normal and no clubbing, cyanosis or edema Assessment and Plan Assessment and plan (1) Screening for colorectal cancer: Code(s): Z12.11 - Encounter for screening for malignant neoplasm of colon; Z12.12 - Encounter for screening for malignant neoplasm of rectum Status: Acute Assessment and Plan: I have recommended colonoscopy. I have discussed the procedure, risks, benefits, and alternatives. Questions were answered. Patient is agreeable to proceed.
--- NOTE | 2024-10-03 09:36 | S_PTH ---
PATIENT: Rex Garcia LOC: [facility] U#:[id number] AGE/SX: 48/M ROOM: RE10/03/[address]: Zach Chilel DO : 1975 BED: DIS: 10/03/2024 SPEC #: [id number] RECD: 10/03/24 14:12 STATUS: HOLLIE REQ #: [id number] JENNA: 10/03/24 09:[address]: Zach Chilel DEPT: [facility] Surgical RECD BY: Karla Emery ENTERED: 10/03/24 14:12 SP TYPE: Surgical OTHR DR: Tobi De La Garza MD Tissues: A - Colon Polypectomy Procedures: Hematoxylin and Eosin Stain Gross and Microscopic Level 4
[2024-10-03 09:38] VITALS: BP 126/74; PULSE 60; RESP 18; O2SAT 99
[2024-10-03 09:48] VITALS: BP 127/83; PULSE 60; RESP 18; O2SAT 100
[2024-10-03 09:58] VITALS: BP 152/80; PULSE 64; RESP 18; O2SAT 98
== END 2024-10-03 10:08 | disposition home or self-care (01) ==
PROVIDERS: PCP Family Medicine; Visit Provider Surgery
PROC: 0DJD8ZZ Inspection of Lower Intestinal Tract, Via Natural or Artificial Opening Endoscopic (ICD-10-PCS; CPT 45378; principal; 2024-10-03 09:00)
DX: Z12.11 Encounter for screening for malignant neoplasm of colon (principal); D12.3 Benign neoplasm of transverse colon; F17.220 Nicotine dependence, chewing tobacco, uncomplicated; E66.01 Morbid (severe) obesity due to excess calories; Z68.41 Body mass index [BMI] 40.0-44.9, adult; Z79.85 Long-term (current) use of injectable non-insulin antidiabetic drugs
CPT/HCPCS: 45380; 82948; 88305; J2003; J2704; J7120

== ENCOUNTER 2025-02-16 15:37 | Outpatient (CLI) | payer BC, SELFPAY ==
--- NOTE | ~2025-02-16 | XR_ITS ---
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 COMPARISON: No comparisons available. Findings: No acute fracture or malalignment. No significant degenerative changes. Soft tissues unremarkable. Impression: No acute fracture or malalignment. Reviewed, dictated and finalized at location P. FACTURING CHIEF ENGINEER Impression: No acute fracture or malalignment.
--- NOTE | ~2025-02-16 | XR_ITS ---
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 COMPARISON: No comparisons available. Findings: No acute fracture or malalignment. No significant degenerative changes. Soft tissues unremarkable. Impression: No acute fracture or malalignment. Reviewed, dictated and finalized at location P. SERVICE STATION ATTENDANT Impression: No acute fracture or malalignment.
--- OUTSIDE RECORDS SUMMARY | 2025-02-16 15:44 | XMS_ITS | Clinical Summary ---
Author Organization [facility] [address] [place] [id number] Care Team Providers Care Foxing Closer Name Role Phone Noemi Snider MD Primary Care Provider Allergies Active Allergy Reactions Criticality Noted Date Comments Hydrocodone-Acetaminophen Anxiety Low 12/13/2020 Medications Synjardy XR 10-1,000 mg tablet, IR & ER, biphasic 24hrIndications :type 2 diabetes mellitus Take 1 tablet by mouth daily before breakfast 2 Active SEMGLEE-yfgn 100 unit/mL (3 mL) pen for injectionIndica tions:diabetes Inject 15 Units under the skin nightly 2 Active irbesartan (AVAPRO) 300 mg tabletIndicatio ns:hypertension Take 1 tablet (300 mg total) by mouth daily before breakfast 2 Active rosuvastatin (CRESTOR) 5 mg tabletIndicatio ns:hyperlipidem ia Take 1 tablet (5 mg total) by mouth daily before breakfast 2 Active Ozempic 0.25 mg or 0.5 mg (2 mg/3 mL) pen injector injectionIndica tions:type 2 diabetes mellitus Inject 0.5 mg under the skin once a week Sundays 3 Active metoprolol XL (TOPROL-XL) 100 mg 24 hr tablet Take 1 tablet (100 mg total) by mouth daily Active omeprazole (PriLOSEC) 20 mg capsule Take 1 capsule (20 mg total) by mouth daily Active docusate sodium (COLACE) 100 mg capsuleIndicati ons:constipatio n Take 1 capsule (100 mg total) by mouth 2 (two) times a day 40 capsule 3 Active oxyCODONE (ROXICODONE) 5 mg immediate release tabletIndicatio ns:Pain Take 1 tablet (5 mg total) by mouth every 4 (four) hours as needed for pain 40 tablet 3 Active Active Problems Problem Noted Date Diagnosed Date Tear of right glenoid labrum 10/03/2022 Right shoulder pain 10/03/2022 Surgical History Surgery Date Site/Laterality Comments HERNIA REPAIR 04/06/2011 - 04/05/2012 CHOLECYSTECTOMY 04/06/2011 - 04/05/2012 MENISCUS SURGERY 04/06/2014 - 04/05/2015 Bilateral 2014 HAND SURGERY Left 2014 & 2016 FLUORO GUIDED ASPIRATION OR INJECTION INTERMEDIATE JOINT RIGHT 05/05/2022 Right FLUORO GUIDED INJECTION SHOU LDER RIGHT 06/13/2022 Right CARDIAC CATHETERIZATION 04/06/2011 - 04/05/2012 Medical History Medical History Date Comments Diabetes mellitus Gastric reflux Obesity Hypertension Brugada syndrome Family History Medical History Relation Name Comments Diabetes Brother Arthritis Father Diabetes Father Heart disease Father Arthritis Mother Diabetes Mother Heart disease Mother Hypertension Mother Diabetes Sister Relation Name Status Comments Brother Father Mother Sister Social History Tobacco Use Types Packs/Day Years Used Date Smoking Tobacco: Former Cigarettes 0.5 2 2 001 - 2002 Smokeless Tobacco: Current Chew Tobacco Cessation:Ready to Q uit: Not Asked Comments:daily Personal Safety Answer Date Recorded Getting School Help Needed Not on file 12/26 Sex and Gender Information Value Date Recorded Sex Assigned at Not on file Legal Sex Male 12:58 PM CDT Gender Identity Not on file Sexual Orientation Not on file Last Filed Vital Signs Vital Sign Reading Time Taken Comments Blood Pressure 137/60 11/20/2022 10:15 AM CDT Pulse 72 11/20/2022 10:25 AM CDT Temperature 36.2 C (97.2 F) 11/20/2022 9:17 AM CDT Respiratory Rate 17 11/20/2022 10:2 5 AM CDT Oxygen Saturation 91% 11/20/2022 10: 25 AM CDT Inhaled Oxygen Concentration - - Weight 121.7 kg (268 lb 3.2 oz) 11/20/2022 6:00 AM CDT Height 167.6 cm (5' 6) 11/20/2022 6:00 AM CDT Body Mass Index 43.29 11/20/2022 6:00 AM CDT Plan of Treatment Health Maintenance Due Date Last Done Comments Colon Cancer Screening-Colonoscopy 1975 Depression Screening 1975 Hepatitis C Screening 1975 Prostate Cancer Screening-PSA 1975 DTaP/Tdap/Td Vaccine (1 - Tdap) 1984 Hepatitis B Screening 10/07/1991 Regular Well Visit/Exam 18-64 10/07/1991 Pneumococcal vaccine <65 (1 of 2 - PCV) 1992 Zoster Vaccine (1 of 2) 10/07/2023 Covid-19 Vaccine (2 - 2024- season) 12/05/202410/2020 Influenza Vaccine (#1) 2024 01/29/2020 Medical Devices Implanted Type Area Clinical Informatics Director Device Identifier Shelf Expiration Date Model / Serial / Lot [employer] System Biceps [place] Slotted Drill Guide 1.9mm Drill [employer] Ar-3670 - [id number] Implanted:Qty: 1 on 11/20/2022 by Rigoberto Tolbert MD at [facility] Right: Shoulder [employer] 07/05/2027 AR-3670 / / [id number] Description:[employer] Syst em Biceps [place] Slotted Drill Guide 1.9mm Drill [employer]ak AR-3670 - [id number] Insurance [employer] WORKERS COMPENSATION GENERIC WORKERS COMPENSATION GENERIC WORKERS COMPENSATION GENERIC Care Teams Foxing Closer Relationship Specialty Start Date End Date [facility] Noemi Y., [place] [address] [facility] [address] [place] [address] PCP - General Family Medicine 12/05/20
== END 2025-02-16 15:38 | disposition home or self-care (01) ==
PROVIDERS: PCP Family Medicine; Visit Provider Physician Assistant
DX: S69.91XA Unspecified injury of right wrist, hand and finger(s), initial encounter (principal); X58.XXXA Exposure to other specified factors, initial encounter
CPT/HCPCS: 73110; 73130